=== PATIENT | male | born 1975 | race Caucasian/White ===

== ENCOUNTER 2020-07-27 18:45 | Emergency (ER) | payer OTHER, SELFPAY ==
[2020-07-27 18:46] VITALS: BP 158/103; PULSE 94; RESP 18; TEMP 35.9; O2SAT 94; BMI 44.2
[2020-07-27 19:17] VITALS: O2SAT 95
[2020-07-27] MEDS: Acetaminophen 500 MG Tablet 1000 MG PO (19:24)
[2020-07-27] MEDS: Ibuprofen 400 MG Tablet 800 MG PO (19:24)
--- NOTE | 2020-07-27 19:24 | RAD_ITS ---
STUDY: X-RAY CHEST REASON FOR EXAM: Male, 45 years old. COUGH, LOSS OF SMELL SINCE SUNDAY. TECHNIQUE: Single AP portable view of the chest. COMPARISON: None. FINDINGS: The lungs are clear and expanded. There is no demonstrated pleural abnormality. Normal size heart. Normal mediastinum and amalia. Normal visualized pulmonary arteries. Normal visualized aortic arch and descending thoracic aorta. Normal visualized thoracic spine. Normal visualized ribs, clavicles, and shoulders. There is no demonstrated abnormality of the visualized soft tissue structures of the upper abdomen. RAD/Chest 1 View (Portable) IMPRESSION: Normal x-ray examination of the chest. Electronically Signed: Primitivo Garcia MD at 19:59 EST , Service support ,
--- NOTE | 2020-07-27 20:18 | ED.VISSUMM ---
- ER Visit Summary Date of Service: 07/27/20 Chief Complaint: Cough History of Present Illness: The patient is a 45 M with no primary care physician reports that he has a cough began 2 days ago. It is nonproductive. Complains subjective fever and chills. He reports that he has mild shortness of breath that is increased with exertion. He has been wheezing. He is never had to use an inhaler in the past. He does not smoke. Patient complains of subjective fever and chills. His got nasal congestion and sore throat is 6 out of 10 in severity. Reports that he has chest pain that is brought on by coughing. States that it is also brought on by deep breaths. Is 5 out of 10 at worst and 3-10 currently. He has had 3 episodes of diarrhea today. He also complains of a frontal headache that is 8 out of 10 severity. Is increased with coughing. Complains of diffuse myalgias. Patient denies any sick contacts. He does wear a mask. He denies any loss of sensation of taste. Reports he can smell because his nose is stuffed up. Physical Examination: Vitals: Stable. Afebrile. General: Well-nourished and well-developed. Head: Normocephalic atraumatic. Neck: Supple, no lymphadenopathy. No JVD. Nontender. Cardiovascular: Regular rate and rhythm. No murmurs. Respiratory: No respiratory distress. Clear to auscultation bilaterally. Abdominal: Soft, nontender, nondistended, normal bowel sounds. No guarding, rebound, or peritoneal signs. Back: Nontender. Extremities: Nontender, no edema. Skin: Normal color, no rash. Neurologic: Alert and oriented ?3. Cranial nerves II through XII are intact. Normal strength and sensation. Psych: Normal affect. Test Results: COVID-19 rapid antigen is negative. Clinical Impression(s) from Imaging Studies Chest X-Ray 07/27/20 19:24 IMPRESSION: Normal x-ray examination of the chest. Electronically Signed: Primitivo Garcia MD at 19:59 EST , Service support , Emergency Department Course and Treatment: Patient refused an IV and labs. He was given Tylenol and ibuprofen. He is resting comfortably. Treatment Plan: Patient will be discharged prescription for an albuterol MDI and Tessalon Perles. He is instructed to quarantine until he is asymptomatic. Instructed to follow-up with [facility] in 10 to 14 days if not improving. Return to the emergency department for any worsening symptoms. Disposition: To home in improved and stable condition. Impression: 1. URI. This note was generated with [employer] dictation software. It may contain incorrect words, spelling, and punctuation that were not noted in review of the chart prior to signing ED Disposition - Plan for ED Patient: Instructions: ED Bronchitis, No Antibiotic (Adult) Prescriptions: Benzonatate [Tessalon Perle] 200 mg PO TID PRN PRN #20 capsule PRN Reason: Cough Albuterol Inhaler [Ventolin Hfa] 2 puff INHALATION Q4H PRN PRN #1 inhaler PRN Reason: Wheezing Referrals: [facility] [NON-STAFF] - 10-14 Days if not better
[2020-07-27 20:36] VITALS: BP 149/90; PULSE 97; RESP 16; O2SAT 97
== END 2020-07-27 20:37 | disposition home or self-care (01) ==
LOC: ED 19:54
PROVIDERS: Emergency Provider Emergency Medicine
DX: J06.9 Acute upper respiratory infection, unspecified (principal); Z20.822 Contact with and (suspected) exposure to COVID-19; R06.02 Shortness of breath; R07.9 Chest pain, unspecified; R19.7 Diarrhea, unspecified
CPT/HCPCS: 71045; 87426; 99282

== ENCOUNTER → 2021-04-04 | Outpatient (CLI) | payer OTHER, SELFPAY ==
[2021-04-04 10:16] LABS: International Normalized Ratio 1.6; Prothrombin Time (Protime)PT. 18.7 SECONDS (11.7-14.9)
== END | disposition home or self-care (01) ==
LOC: LABSPEC 09:52
PROVIDERS: Visit Provider Internal Medicine Hematology & Oncology
DX: I26.94 Multiple subsegmental thrombotic pulmonary emboli without acute cor pulmonale (principal); C15.5 Malignant neoplasm of lower third of esophagus; C79.31 Secondary malignant neoplasm of brain
CPT/HCPCS: 85610

== ENCOUNTER → 2021-04-06 | Outpatient (CLI) | payer OTHER, SELFPAY ==
[2021-04-06 10:36] LABS: International Normalized Ratio 2.2; Prothrombin Time (Protime)PT. 23.6 SECONDS (11.7-14.9)
== END | disposition home or self-care (01) ==
LOC: LABSPEC 10:23
PROVIDERS: PCP Registered Nurse; Visit Provider Internal Medicine Hematology & Oncology
DX: I26.99 Other pulmonary embolism without acute cor pulmonale (principal)
CPT/HCPCS: 85610

== ENCOUNTER → 2021-04-11 | Outpatient (CLI) | payer OTHER, SELFPAY ==
[2021-04-11 10:33] LABS: International Normalized Ratio 1.8; Prothrombin Time (Protime)PT. 20.4 SECONDS (11.7-14.9)
== END | disposition home or self-care (01) ==
LOC: LABSPEC 10:15
PROVIDERS: PCP Registered Nurse; Referring Provider Internal Medicine Hematology & Oncology; Visit Provider Internal Medicine Hematology & Oncology
DX: I26.94 Multiple subsegmental thrombotic pulmonary emboli without acute cor pulmonale (principal); C15.5 Malignant neoplasm of lower third of esophagus; C79.31 Secondary malignant neoplasm of brain
CPT/HCPCS: 85610

== ENCOUNTER → 2021-04-15 | Outpatient (CLI) | payer OTHER, SELFPAY ==
[2021-04-15 13:36] LABS: International Normalized Ratio 2.5; Prothrombin Time (Protime)PT. 26.6 SECONDS (11.7-14.9)
== END | disposition home or self-care (01) ==
LOC: LABSPEC 13:23
PROVIDERS: PCP Registered Nurse; Referring Provider Internal Medicine Hematology & Oncology; Visit Provider Internal Medicine Hematology & Oncology
DX: I26.94 Multiple subsegmental thrombotic pulmonary emboli without acute cor pulmonale (principal); C15.5 Malignant neoplasm of lower third of esophagus; C79.31 Secondary malignant neoplasm of brain
CPT/HCPCS: 85610

== ENCOUNTER → 2021-04-19 | Outpatient (CLI) | payer OTHER, SELFPAY ==
[2021-04-19 12:59] LABS: International Normalized Ratio 3.2; Prothrombin Time (Protime)PT. 31.7 SECONDS (11.7-14.9)
== END | disposition home or self-care (01) ==
PROVIDERS: PCP Registered Nurse; Referring Provider Nurse Practitioner; Visit Provider Nurse Practitioner
DX: I26.94 Multiple subsegmental thrombotic pulmonary emboli without acute cor pulmonale (principal); C15.5 Malignant neoplasm of lower third of esophagus; C79.31 Secondary malignant neoplasm of brain
CPT/HCPCS: 85610

== ENCOUNTER → 2021-04-26 | Outpatient (CLI) | payer OTHER, SELFPAY ==
[2021-04-26 11:06] LABS: Prothrombin Time (Protime)PT. 30.4 SECONDS (11.7-14.9)
== END | disposition home or self-care (01) ==
LOC: LABSPEC 10:23
PROVIDERS: PCP Registered Nurse; Visit Provider Internal Medicine Hematology & Oncology
DX: I26.94 Multiple subsegmental thrombotic pulmonary emboli without acute cor pulmonale (principal); C15.5 Malignant neoplasm of lower third of esophagus; C79.31 Secondary malignant neoplasm of brain
CPT/HCPCS: 85610

== ENCOUNTER 2021-07-26 11:59 | Emergency (ER) | payer OTHER, SELFPAY ==
[2021-07-26] VITALS (17 sets, daily range): BP systolic 101–122; BP diastolic 56–84; PULSE 85–113; RESP 15–24; TEMP 35.9–37.2; O2SAT 95–100; BMI 39.2
[2021-07-26 13:04] LABS: Absolute Lymphocyte Count 0.68 X10^3/uL (0.83-4.51); Absolute Neutrophil Count 3.1 X10^3/uL (2.0-7.7); Basophil# 0.04 X10^3/uL; Basophil% 0.9 % (0-1); Eosinophil# 0.09 X10^3/uL; Hematocrit 16.5 % (40-54); Lymphocyte # 0.68 X10^3/ul (0.83-4.51); Mean Corp Hgb Conc 32.1 g/dL (32-36); Mean Corpuscular Hgb 33.3 pg (27.0-32.0); Mean Corpuscular Volume 103.8 fL (80-94); Mean Platelet Vol. 10.2 fl (6.2-12.0); Monocyte# 0.66 X10^3/uL; Monocyte% 14.6 % (0-10); NRBC Flagged by Analyzer 0 % (0-5); Neutrophil # 3.05 X10^3/uL (2.7-7.7); Neutrophil % 67.3 % (47-70); POSITIVE COUNT YES; POSITIVE MORPHOLOGY YES; Platelet Count 137 K/mm3 (150-450); RBC Distribution Width CV 17.5 % (11.6-14.6); RBC Distribution Width SD 66.4 fl (35.1-43.9); Red Blood Count 1.59 M/mm3 (4.6-6.2); White Blood Count 4.5 K/mm3 (4.4-11.0)
[2021-07-26 13:06] LABS: Differential Indicated SCAN CRITERIA MET; Hemoglobin 5.3 g/dL (13.0-16.5)
[2021-07-26 13:17] LABS: Anion Gap 5 (5-15); BUN 25 mg/dL (7-18); BUN/Creat Ratio 23.8 RATIO (10-20); Calcium,Total 7.9 mg/dL (8.5-10.1); Chloride 112 mmol/L (98-107); Creatinine, Serum 1.05 mg/dL (0.70-1.30); EST Glomerular Filtration Rate 81 mL/min (>60); Est Glom Filt Rate - Afr Amer 98 mL/min (>60); Estimated Creatinine Clearance 94.62 ml/min; Glucose 97 mg/dL (74-106); Potassium 3.7 mmol/L (3.5-5.1); Prothrombin Time (Protime)PT. 53.3 SECONDS (11.7-14.9); Sodium Level 141 mmol/L (136-145)
[2021-07-26 13:24] LABS: International Normalized Ratio 6.1
[2021-07-26 13:34] LABS: Anisocytosis 1+; Hypochromasia 1+; Macrocytosis 2+
[2021-07-26] MEDS: Phytonadione (Vit K1) 5 MG TABLET PO (14:53)
--- NOTE | 2021-07-26 15:03 | EX.ED.DYSGE1 ---
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 Patient is currently receiving chemotherapy and immunotherapy. He had routine blood work anticipation of treatments this week and was found to have a hemoglobin of 5.6. He was 7.8 last week (07/12). In addition patient's INR is 7.6. Patient notes he is been having dark stools but attributes that to his iron tablets that he was placed on. He had 2 units of packed red blood cells ordered to receive tomorrow but his oncologist wanted him to be evaluated more urgently than the so he was sent to the emergency room. Patient has had weight loss and reports decreased oral intake but denies any significant dietary changes. She has been compliant with all his medications. He notes he has been having a little dizzy when he stands up and having exercise intolerance over the past week or so. No other complaints at this time. [facility] Medical History Throat cancer Home Medications ferrous sulfate 325 mg PO DAILY 07/26/21 [History Last Taken 07/25/21] lisinopril 10 mg PO DAILY 07/26/21 [History Last Taken 07/26/21] olanzapine 10 mg PO QHS 07/26/21 [History Last Taken 07/25/21] omeprazole 40 mg PO DAILY 07/26/21 [History Last Taken 07/26/21] warfarin 5 mg PO DAILY 07/26/21 [History Last Taken 07/26/21] Allergy/AdvReac Type Severity Reaction Status Date / Time Penicillins Allergy Mild Hives Verified 07/26/21 12:03 Social History Smoking Status: Never smoker ROS ROS ED Constitutional Constitutional ED: Reports weight loss; Denies chills or fever(s) Eyes Eyes: Denies change in vision ENT ENT ED: Denies rhinorrhea or sore throat Cardiovascular Cardiovascular: Denies chest pain or palpitations Respiratory/Chest Respiratory/Chest: Reports dyspnea on exertion; Denies cough or dyspnea Gastrointestinal Gastrointestinal: Denies abdominal pain, melena, nausea or vomiting Musculoskeletal Musculoskeletal: Denies arthralgias or myalgias Integumentary Denies rash Neurologic Neurologic: Reports weakness; Denies headache(s) Psychiatric Psychiatric: Denies depression EXAM Physical Exam Const Vital Signs: 07/26/21 12:00 07/26/21 12:15 07/26/21 12:40 Temperature 96.6 F L Temperature Source Temporal Pulse Rate 113 H 102 H Respiratory Rate 18 23 H Respiratory Effort Normal Respiratory Pattern Normal Blood Pressure 111/64 116/84 H Blood Pressure Mean 79 94 Pulse Ox 97 97 Oxygen Delivery Method Room Air Room Air 07/26/21 14:04 Temperature Temperature Source Pulse Rate 90 Respiratory Rate 18 Respiratory Effort Respiratory Pattern Blood Pressure 115/56 L Blood Pressure Mean 75 Pulse Ox 97 Oxygen Delivery Method Room Air Positive well nourished and well developed General Appearance ED: well developed and pallor HEENT Reports moist mucous membranes Negative for tenderness Eyes PERRL and EOMs intact bilaterally Neck no lymphadenopathy, supple and no JVD Chest Wall inspection of chest normal Resp normal respiratory effort and clear to auscultation bilaterally Cardio regular rate, regular rhythm and no murmurs GI normal to inspection, nondistended, normoactive bowel sounds and non-tender Palpation: soft Rectal Exam: heme negative stool Back/Spine no CVA tenderness Extremity normal to inspection General Extremety ED: Negative for edema or tenderness General Extremity: Negative for edema Neuro oriented x3 Sensorium / Orientation: alert Motor Exam: Negative for general weakness Psych mental status grossly normal Skin no rashes or lesions noted and no wounds General Skin Exam: pallor MDM MDM MDM Narrative Medical decision making narrative: Patient evaluated for supratherapeutic INR. Case is discussed with his treating oncologist, Dr. Egan. Rechecked a CBC which confirmed his anemia with a hemoglobin of 5.3. Rectal exam does not show any signs of GI bleed or occult GI bleed. No signs of active bleeding. Patient is given a dose of 5 mg oral vitamin K per the recommendation of his oncologist. Patient be given 2 units of packed red blood cells and is symptomatic. Patient would like to go home after transfusion. Assuming he is feeling better and asymptomatic after blood transfusion he can be discharged home to follow-up outpatient with his oncologist. Is instructed to hold his Coumadin today. Lab Data Attestation: I reviewed the patient's lab results. Labs: Laboratory Results - last 24 hr 07/26/21 07/26/21 07/26/21 12:53 12:53 12:53 WBC 4.5 RBC 1.59 L Hgb 5.3 L* Hct 16.5 L MCV 103.8 H MCH 33.3 H MCHC 32.1 RDW Std Deviation 66.4 H RDW Coeff of Kami 17.5 H Plt Count 137 L MPV 10.2 Immature Gran % (Auto) 0.200 Neut % (Auto) 67.3 Lymph % (Auto) 15.0 L [place] % (Auto) 14.6 H Eos % (Auto) 2.0 Baso % (Auto) 0.9 Absolute Neuts (auto) 3.1 Absolute Lymphs (auto) 0.68 L Nucleated RBC % 0 Diff Path Review May foll Hypochromasia 1+ Anisocytosis 1+ Macrocytosis 2+ PT 53.3 H INR 6.1 H* Sodium 141 Potassium 3.7 Chloride 112 H Carbon Dioxide 24.0 Anion Gap 5 BUN 25 H Creatinine 1.05 Estim Creat Clear Calc 94.62 Est GFR (MDRD) Af Amer 98 Est GFR (MDRD) Non-Af 81 BUN/Creatinine Ratio 23.8 H Glucose 97 Calcium 7.9 L Blood Type Antibody Screen Crossmatch 07/26/21 13:16 WBC RBC Hgb Hct MCV MCH MCHC RDW Std Deviation RDW Coeff of Kami Plt Count MPV Immature Gran % (Auto) Neut % (Auto) Lymph % (Auto) [place] % (Auto) Eos % (Auto) Baso % (Auto) Absolute Neuts (auto) Absolute Lymphs (auto) Nucleated RBC % Diff Path Review Hypochromasia Anisocytosis Macrocytosis PT INR Sodium Potassium Chloride Carbon Dioxide Anion Gap BUN Creatinine Estim Creat Clear Calc Est GFR (MDRD) Af Amer Est GFR (MDRD) Non-Af BUN/Creatinine Ratio Glucose Calcium Blood Type A POSITIVE Antibody Screen NEGATIVE Crossmatch See Detail Discharge Plan Triage Chief Complaint: Dizziness ED Provider: Shobha Rivas Dx/Rx/DC Orders Clinical Impression: Symptomatic anemia, Supratherapeutic INR Instructions: Anemia Prescriptions: No Action olanzapine 10 mg tablet 10 mg PO QHS RF: 0 ferrous sulfate 325 mg (65 mg iron) Tablet 325 mg PO DAILY RF: 0 lisinopril 10 mg tablet 10 mg PO DAILY RF: 0 warfarin 5 mg Tablet 5 mg PO DAILY RF: 0 omeprazole 20 mg capsule,delayed release(DR/EC) 40 mg PO DAILY RF: 0 Primary Care Provider: Cassy Aranda NP Referrals: Ignacio Egan DO [STAFF PHYSICIAN] - Cassy Aranda NP, [employer] [Primary Care Provider] - Activity Restrictions/Additional Instructions: Hold your Coumadin today and tomorrow. Discussed with your oncologist further recommendations for your Coumadin dosing. Call him tomorrow. Disposition Disposition: Home, Self Care
[2021-07-27 10:28] LABS: Pathologist Review Reviewed
== END 2021-07-26 19:39 | disposition home or self-care (01) ==
PROVIDERS: Emergency Provider Emergency Medicine; PCP Registered Nurse; Visit Provider Emergency Medicine
DX: D64.9 Anemia, unspecified (principal); C79.31 Secondary malignant neoplasm of brain; C15.9 Malignant neoplasm of esophagus, unspecified; C77.9 Secondary and unspecified malignant neoplasm of lymph node, unspecified; R79.1 Abnormal coagulation profile; Z79.01 Long term (current) use of anticoagulants; Z79.899 Other long term (current) drug therapy
CPT/HCPCS: 36430; 80048; 82274; 85025; 85610; 86850; 86900; 86901; 86920; 86922; 99282; J7050; P9016; A4216

== ENCOUNTER 2021-07-27 15:22 | Outpatient (CLI) | payer OTHER, SELFPAY ==
[2021-07-27 15:56] LABS: Prothrombin Time (Protime)PT. 49.1 SECONDS (11.7-14.9)
[2021-07-27 16:05] LABS: International Normalized Ratio 5.5
== END 2021-07-27 23:59 | disposition short-term general hospital (02) ==
LOC: LABSPEC 15:27
PROVIDERS: PCP Registered Nurse; Visit Provider Internal Medicine Hematology & Oncology
DX: I26.94 Multiple subsegmental thrombotic pulmonary emboli without acute cor pulmonale (principal); C79.31 Secondary malignant neoplasm of brain; C15.5 Malignant neoplasm of lower third of esophagus
CPT/HCPCS: 85610

== ENCOUNTER 2021-07-29 12:32 | Outpatient (CLI) | payer OTHER, SELFPAY ==
[2021-07-29 12:52] LABS: International Normalized Ratio 1.5; Prothrombin Time (Protime)PT. 17.5 SECONDS (11.7-14.9)
== END 2021-07-29 23:59 | disposition home or self-care (01) ==
PROVIDERS: PCP Registered Nurse; Visit Provider Internal Medicine Hematology & Oncology
DX: I26.99 Other pulmonary embolism without acute cor pulmonale (principal)
CPT/HCPCS: 85610

== ENCOUNTER 2021-08-05 09:06 | Outpatient (CLI) | payer OTHER, SELFPAY ==
[2021-08-05 09:20] VITALS: BP 135/75; PULSE 87; RESP 12; TEMP 36.6; O2SAT 94; BMI 40.4
[2021-08-05] MEDS: 0.9% NaCl VAD Flush IV ×2 (09:28→12:00)
[2021-08-05 10:16] VITALS: BP 110/65; PULSE 78; RESP 16; TEMP 36.6; O2SAT 95
[2021-08-05 11:16] VITALS: BP 117/71; PULSE 79; RESP 16; TEMP 37.1
[2021-08-05 11:56] VITALS: BP 117/71; PULSE 78; RESP 16; TEMP 37.1
== END 2021-08-05 23:59 | disposition home or self-care (01) ==
LOC: MEDOUTP 09:08
PROVIDERS: PCP Registered Nurse; Referring Provider Internal Medicine Hematology & Oncology; Visit Provider Internal Medicine Hematology & Oncology
DX: Z51.89 Encounter for other specified aftercare (principal); D64.81 Anemia due to antineoplastic chemotherapy
CPT/HCPCS: 36430; 86850; 86900; 86901; 86920; 86922; J7040; P9016; A4216

== ENCOUNTER 2021-08-05 12:10 | Outpatient (CLI) | payer OTHER, SELFPAY ==
--- NOTE | 2021-08-05 12:13 | VDLE_ITS ---
Reason For Study: Swelling, Pulmonary embolism without infarction RIGHT LEFT GSV is normal. GSV is normal. CFV is compressible, spontaneous, phasic, CFV is compressible, spontaneous, phasic, competent and demonstrates normal competent, and demonstrates normal augmentation. augmentation. FV is compressible, spontaneous, phasic, FV is compressible, spontaneous, phasic, competent and demonstrates normal competent and demonstrates normal augmentation. augmentation. POP V is compressible, spontaneous, phasic, POP V is compressible, spontaneous, phasic, competent and demonstrates normal competent and demonstrates normal augmentation. augmentation. T/P Trunk is compressible. T/P Trunk is compressible. PTV is compressible. PTV is compressible. RT PerV is compressible. LT PerV is compressible. Procedure This is a venous duplex using B-mode, color flow and spectral Doppler. Exam performed in department. A preliminary report was called and/or faxed to [facility]. VL/Venous Duplex US - Irineo Extrem Interpretation Summary No evidence for acute deep venous thrombosis bilateral lower extremities with p atent and compressible bilateral great saphenous veins. Ordering Physician: Ignacio Egan Referring Physician: Cassy Aranda Performed By: La Zambrano RVT
== END 2021-08-05 23:59 | disposition home or self-care (01) ==
LOC: CVS 12:11
PROVIDERS: PCP Registered Nurse; Referring Provider Internal Medicine Hematology & Oncology; Visit Provider Internal Medicine Hematology & Oncology
DX: M79.89 Other specified soft tissue disorders (principal); I26.99 Other pulmonary embolism without acute cor pulmonale
CPT/HCPCS: 93970

== ENCOUNTER 2021-08-30 11:58 | Outpatient (CLI) | payer OTHER, SELFPAY ==
[2021-08-30 12:29] LABS: International Normalized Ratio 1.1; Prothrombin Time (Protime)PT. 13.4 SECONDS (11.7-14.9)
== END 2021-08-30 23:59 | disposition home or self-care (01) ==
LOC: LABSPEC 11:59
PROVIDERS: PCP Registered Nurse; Visit Provider Internal Medicine Hematology & Oncology
DX: I26.99 Other pulmonary embolism without acute cor pulmonale (principal)
CPT/HCPCS: 85610

== ENCOUNTER 2022-06-08 16:20 | Emergency (ER) | payer OTHER, SELFPAY ==
[2022-06-08 16:21] VITALS: BP 134/100; PULSE 107; RESP 16; TEMP 36.3; O2SAT 99; BMI 37.8
--- NOTE | 2022-06-08 16:59 | EDS_ITS ---
HPI History of Present Illness Chief Complaint: Hyperglycemia Informant: patient and spouse/S.O. Onset/Context/Timing Onset: Days Context: Gradual Onset Timing: Continuous Current Severity: Mild Maximum Severity: Mild Narrative Narrative: 47-year-old male known history of esophageal CA with brain mets. Has been diagn osed 1.5 years. He has had gamma knife procedures for the brain metastases. He has significant vertigo and ataxia from the brain mets. Today he was seen in [place] office Dr. Ignacio Egan. His blood sugar was elevated at 369 and he thought he was dehydrated and sent him to the ER to be evaluated and hydrated. He has had intermittent nausea and vomiting. Prior similar symptoms: Yes Recent Illness/Hospitalization: No [facility] Medical History Throat cancer Home Medications ferrous sulfate 325 mg (65 mg iron) tablet 325 mg PO DAILY iron supplement 07/26/21 [History Last Taken 07/25/21] lisinopril 10 mg tablet 10 mg PO DAILY blood pressure 07/26/21 [History Last Taken 07/26/21] olanzapine 10 mg tablet 10 mg PO QHS 07/26/21 [History Last Taken 07/25/21] omeprazole 20 mg capsule,delayed release 40 mg PO DAILY acid reflux 07/26/21 [History Last Taken 07/26/21] warfarin 5 mg tablet 5 mg PO DAILY blood thinner 07/26/21 [History Last Taken 07/26/21] Allergy/AdvReac Type Severity Reaction Status Date / Time Penicillins Allergy Mild Hives Verified 07/26/21 12:03 Social History Smoking Status: Never smoker ROS ROS ED ROS Narrative Nausea and vomiting. Review of Systems ROS Unobtainable: Denies due to encephalopathy Constitutional Constitutional ED: Denies chills or fever(s) Eyes Eyes: Denies blurry vision ENT ENT ED: Denies ear pain Cardiovascular Cardiovascular: Denies chest pain Respiratory/Chest Respiratory/Chest: Denies cough or dyspnea Gastrointestinal Gastrointestinal: Reports nausea and vomiting; Denies abdominal pain, constipation or melena Genitourinary Genitourinary ED: Denies dysuria or hematuria Musculoskeletal Musculoskeletal: Denies arthralgias Integumentary Denies abscess Neurologic Neurologic: Denies headache(s) Psychiatric Psychiatric: Denies anxiety Endocrine Endocrinology: Denies cold intolerance Hematologic/Lymphatic Hematologic/Lymphatic: Reports none Allergic/Immunologic Allergic/Immunologic ED: Denies mouth swelling or tongue swelling EXAM Physical Exam Narrative Exam Narrative: -year-old male vital signs are stable afebrile. He does not look septic or toxic. H EENT exam alopecia with mildly dry mucous members. Neck nontender. Lungs clear to auscultation. Heart tachycardic rate about 110 no murmur. Abdomen soft nontender normal bowel sounds no peritoneal signs. Moving all 4 extremities. Skin pale. Neurologically is awake and alert. Answering questions following commands. Const Vital Signs: 06/08/22 16:21 06/08/22 16:44 06/08/22 19:31 Temperature 97.3 F L Temperature Source Temporal Pulse Rate 107 H Respiratory Rate 16 Respiratory Effort Normal Blood Pressure 134/100 H Blood Pressure Mean 111 Pulse Ox 99 99 Oxygen Delivery Method Room Air Room Air Positive well nourished, well developed and obese; Negative for cachectic, contractures or unkempt General Appearance ED: well developed and pallor; Negative for unkempt, cachectic or contractures Nutritional Appearance: obese; Negative for cachectic HEENT Reports dry mucous membranes Negative for trauma or tenderness Mouth ED: Yes dry mucous membranes Mouth: dry mucous membranes Eyes PERRL and EOMs intact bilaterally General Eye ED: Negative for pale conjunctiva, scleral icterus or other Neck supple and no JVD General: Negative for tenderness Lymph Lymphatic: Negative for other Chest Wall inspection of chest normal and palpation of chest normal Chest: Negative for other Resp normal respiratory effort and clear to auscultation bilaterally Effort and Inspection: Negative for retractions Auscultation: Negative for rales, rhonchi or wheezes Cardio regular rhythm, S2 normal heart sound and no murmurs; Negative for regular rate Rate: tachycardic GI normal to inspection, nondistended, normoactive bowel sounds, non-tender, non- distended and no masses Inspection: Negative for abdominal distention Auscultation: normoactive bowel sounds Palpation: soft; Negative for tender Back/Spine no CVA tenderness General Back: Negative for CVA tenderness Cervical Spine: Negative for cervical spine tenderness Thoracic Spine / Upper Back: Negative for thoracic spinal tenderness Lumbar Spine / Lower Back: Negative for lumbar spinal tenderness Extremity normal to inspection General Extremety ED: Negative for edema or tenderness General Extremity: Negative for edema Neuro oriented x3 Sensorium / Orientation: alert Motor Exam: strength 5/5 throughout Psych mental status grossly normal Appearance: Negative for unkempt Attitude: No agitated Mood & Affect: Negative for depressed, anxious or tearful Skin no rashes or lesions noted and no wounds General Skin Exam: pallor; Negative for jaundice Rashes: No rashes noted Trauma: Negative for abrasion Wounds: Negative for wounds noted MDM MDM MDM Narrative Medical decision making narrative: 47-year-old male history of esophageal CA with brain mets. Undergoing chemotherapy and gamma knife surgeries. Today his blood sugar is elevated at the oncologist office he was sent in for dehydration. He will be treated with IV fluids. Screening labs are being obtained.Urinalysis is negative. Multiple repeat exams unchanged. He was treated with a liter of normal saline. Patient clinically is mildly dehydrated. I spoke at length to his oncologist Dr. Ignacio Egan. Patient has a very very poor prognosis. He has been on dexamethasone which may be driving his blood sugars up he also may be converting to new onset diabetes or could also be from liver failure from his cancer with metastases. Dr. Egan is going to have him follow-up with [facility] primary care tomorrow to get him started on medications for his blood sugar. Neither he nor I feel the patient needs to be admitted. Discussed this at length with both the patient and his significant other. We will follow-up tomorrow. He will receive another saline bolus of 500 and recheck his blood sugar prior to discharge. Lab Data Attestation: I reviewed the patient's lab results. Lab results narrative: * CBC White count 7.8 H&H 8.9 and 25. Platelets 111,000. Electrolytes potassium of 3.3 gap at 9 BUN 35 creatinine 1.1 consistent with dehydration. Liver enzymes are elevated. Glucose 373. Gap at 9. * Urinalysis is negative. Labs: Laboratory Results - last 24 hr 06/08/22 06/08/22 06/08/22 17:05 17:05 18:54 WBC 7.8 RBC 2.84 L Hgb 8.9 L Hct 25.5 L MCV 89.8 MCH 31.3 MCHC 34.9 RDW Std Deviation 77.6 H RDW Coeff of Kami 23.8 H Plt Count 111 L MPV 10.7 Neut % (Auto) Not Reportable Absolute Neuts (auto) 7.2 Absolute Lymphs (auto) 0.16 L Total Counted 100 Neutrophils % (Manual) 77 H Band Neutrophils % 15 H Lymphocytes % (Manual) 2 L Metamyelocytes % 2 H Myelocytes % 4 H Nucleated RBCs/100 WBC 1 Differential Comment SEE COMMENT Diff Path Review May foll Platelet Estimate SLT DEC RBC Morphology N CHROM Anisocytosis 1+ Microcytosis 1+ Sodium 138 Potassium 3.3 L Chloride 102 Carbon Dioxide 27.0 Anion Gap 9 BUN 35 H Creatinine 1.16 Estim Creat Clear Calc 84.75 Est GFR (MDRD) Af Amer 87 Est GFR (MDRD) Non-Af 72 BUN/Creatinine Ratio 30.2 H Glucose 373 H Calcium 7.6 L Total Bilirubin 2.30 H AST 60 H ALT 96 H Alkaline Phosphatase 298 H Total Protein 4.7 L Albumin 1.8 L Globulin 2.9 Albumin/Globulin Ratio 0.6 L Urine Color Urine Clarity Urine pH Ur Specific [place] Urine Protein Urine Glucose (UA) Urine Ketones Urine Occult Blood Urine Nitrite Urine Bilirubin Urine Urobilinogen Ur Leukocyte Esterase Urine RBC Urine WBC Ur Squamous Epith Cells Urine Bacteria Urine Mucus POC Glucose 357 H 06/08/22 06/08/22 20:40 20:50 WBC RBC Hgb Hct MCV MCH MCHC RDW Std Deviation RDW Coeff of Kami Plt Count MPV Neut % (Auto) Absolute Neuts (auto) Absolute Lymphs (auto) Total Counted Neutrophils % (Manual) Band Neutrophils % Lymphocytes % (Manual) Metamyelocytes % Myelocytes % Nucleated RBCs/100 WBC Differential Comment Diff Path Review Platelet Estimate RBC Morphology Anisocytosis Microcytosis Sodium Potassium Chloride Carbon Dioxide Anion Gap BUN Creatinine Estim Creat Clear Calc Est GFR (MDRD) Af Amer Est GFR (MDRD) Non-Af BUN/Creatinine Ratio Glucose Calcium Total Bilirubin AST ALT Alkaline Phosphatase Total Protein Albumin Globulin Albumin/Globulin Ratio Urine Color Nae Urine Clarity Clear Urine pH 6.0 Ur Specific [place] 1.015 Urine Protein 15 H Urine Glucose (UA) Normal Urine Ketones 5 H Urine Occult Blood Negative Urine Nitrite Negative Urine Bilirubin Negative Urine Urobilinogen 4 H Ur Leukocyte Esterase 25 H Urine RBC 0 SEEN Urine WBC 0-5 SEEN Ur Squamous Epith Cells 0 SEEN Urine Bacteria RARE Urine Mucus 0 SEEN POC Glucose 361 H Discharge Plan Triage Chief Complaint: Hyperglycemia ED Provider: Obi Ely Dx/Rx/DC Orders Clinical Impression: Hyperglycemia, Diabetes mellitus, new onset, Hx of esophageal malignancy, Abnormal liver enzymes, Acute dehydration Prescriptions: No Action olanzapine 10 mg tablet 10 mg PO QHS Label Comments: TAKE 1 TABLET BY MOUTH EVERYDAY AT BEDTIME ferrous sulfate 325 mg (65 mg iron) Tablet 325 mg PO DAILY lisinopril 10 mg tablet 10 mg PO DAILY Label Comments: TAKE 1 TABLET BY MOUTH EVERY DAY warfarin 5 mg Tablet 5 mg PO DAILY omeprazole 20 mg capsule,delayed release(DR/EC) 40 mg PO DAILY Label Comments: TAKE 2 CAPSULES BY MOUTH EVERY DAY Primary Care Provider: Cassy Aranda NP Referrals: Cassy Aranda NP, [employer] [Primary Care Provider] -
[2022-06-08 17:15] LABS: Hematocrit 25.5 % (40-54); Hemoglobin 8.9 g/dL (13.0-16.5); Mean Corp Hgb Conc 34.9 g/dL (32-36); Mean Corpuscular Hgb 31.3 pg (27.0-32.0); Mean Corpuscular Volume 89.8 fL (80-94); Mean Platelet Vol. 10.7 fl (6.2-12.0); POSITIVE COUNT YES; POSITIVE DIFFERENTIAL YES; POSITIVE MORPHOLOGY YES; Platelet Count 111 K/mm3 (150-450); RBC Distribution Width CV 23.8 % (11.6-14.6); RBC Distribution Width SD 77.6 fl (35.1-43.9); Red Blood Count 2.84 M/mm3 (4.6-6.2); White Blood Count 7.8 K/mm3 (4.4-11.0)
[2022-06-08 17:17] LABS: Differential Indicated MANUAL DIFF
[2022-06-08] MEDS: 0.9% Normal Saline 1,000 ML 1000 ML IV (17:20)
[2022-06-08 17:42] LABS: ALB/GLOB Ratio 0.6 RATIO (0.9-2.4); AST(SGOT) 60 U/L (15-37); Alanine Aminotransfer ALT/SGPT 96 U/L (16-61); Albumin, Serum 1.8 g/dL (3.2-5.0); Alkaline Phosphatase 298 U/L (45-117); Anion Gap 9 (5-15); BUN 35 mg/dL (7-18); BUN/Creat Ratio 30.2 RATIO (10-20); Calcium,Total 7.6 mg/dL (8.5-10.1); Chloride 102 mmol/L (98-107); Creatinine, Serum 1.16 mg/dL (0.70-1.30); EST Glomerular Filtration Rate 72 mL/min (>60); Est Glom Filt Rate - Afr Amer 87 mL/min (>60); Estimated Creatinine Clearance 84.75 ml/min; Globulin 2.9 g/dL (2.2-4.2); Glucose 373 mg/dL (74-106); Potassium 3.3 mmol/L (3.5-5.1); Protein, Total 4.7 g/dL (6.4-8.2); Sodium Level 138 mmol/L (136-145)
[2022-06-08 17:46] LABS: Lymphocyte 2 % (19-41); Metamyelocyte 2 % (0-1); Myelocyte 4 % (0-0); Neutrophil-Band 15 % (0-5); Neutrophil-Segmented 77 % (47-70); Nucleated Red Bld Cells,Manual 1 % (0-5); Total Cells Counted 100 (MANUAL DIFF)
[2022-06-08 17:49] LABS: Absolute Lymphocyte Count 0.16 X10^3/uL (0.83-4.51); Absolute Neutrophil Count 7.2 X10^3/uL (2.0-7.7)
[2022-06-08 17:50] LABS: Platelet Estimate SLT DEC (ADEQ)
[2022-06-08 17:51] LABS: Anisocytosis 1+; Microcytosis 1+; Red Cell Morphology N CHROM NORMAL (NORM C&C)
[2022-06-08 19:16] LABS: Bedside Glucose 357 mg/dL (74-106)
[2022-06-08 19:31] VITALS: O2SAT 99
[2022-06-08] MEDS: Insulin Lispro 100 UNIT/ML INSULN.PEN 6 UNIT SC (20:54)
[2022-06-08 21:01] LABS: Bedside Glucose 361 mg/dL (74-106)
[2022-06-08 21:03] LABS: Mucous, Urine 0 SEEN /hpf (<or=2+); Red Blood Cells-Urine 0 SEEN /hpf (0-5); Squamous Epithelial Cells - UA 0 SEEN /hpf (0-5)
[2022-06-08 21:10] LABS: Color, Urine Amber (Yellow); Glucose, Dipstick Normal (Normal); Ketone-Dipstick 5 mg/dl (Negative); Leukocyte Esterase-Dipstick 25 /ul (Negative); Nitrite-Dipstick Negative (Negative); Occult Blood-Urine Negative /ul (Negative); Protein-Dipstick 15 mg/dl (Negative); Specific Gravity, Urine 1.015 (1.002-1.030); Urine Bilirubin Dipstick Negative (Negative); Urine Clarity Clear (Clear); Urine Urobilinogen 4 mg/dl (Normal)
[2022-06-08 21:16] LABS: Bacteria RARE /hpf (None Seen); White Blood Cells 0-5 SEEN /hpf (0-5)
[2022-06-08 22:09] VITALS: PULSE 78; RESP 22; O2SAT 93
[2022-06-08 22:25] LABS: Bedside Glucose 338 mg/dL (74-106)
[2022-06-12 10:07] LABS: Pathologist Review Reviewed
== END 2022-06-08 22:54 | disposition home or self-care (01) ==
PROVIDERS: Emergency Provider Emergency Medicine; PCP Registered Nurse; Visit Provider Emergency Medicine
DX: E11.65 Type 2 diabetes mellitus with hyperglycemia (principal); C79.31 Secondary malignant neoplasm of brain; E86.0 Dehydration; R74.8 Abnormal levels of other serum enzymes; E66.9 Obesity, unspecified
CPT/HCPCS: 36591; 80053; 81001; 82962; 85025; 96360; 96361; 99284; J7030; J7040; A4216

== ENCOUNTER 2022-06-12 07:38 | Inpatient (IN) | payer OTHER, MEDICAID, SELFPAY ==
[2022-06-12] VITALS (24 sets, daily range): BP systolic 105–130; BP diastolic 68–84; PULSE 83–101; RESP 10–32; TEMP 36–36.7; O2SAT 90–97; BMI 40.4; BMI 43.5
--- NOTE | 2022-06-12 07:56 | EDS_ITS ---
HPI History of Present Illness Chief Complaint: Hyperglycemia Informant: patient and EMS Onset/Context/Timing Context: Gradual Onset Timing: Continuous Quality: Weakness Location: Generalized Worsened by: Nothing Relieved by: Nothing Narrative Narrative: Patient presents with elevated blood sugars that were noticed today. Patient has a history of esophageal cancer with metastases. Patient is a poor informant. EMS reports the patient's fingerstick blood sugar read high. Patient denies any fevers or chills. Patient denies any nausea or vomiting. Patient denies any chest pain or shortness of breath. Review of prior records shows that the patient has been having problems with his blood sugar recently and his oncologist was not sure if it was related to his cancer or he is developing new onset diabetes. [facility] Medical History Throat cancer Home Medications ferrous sulfate 325 mg (65 mg iron) tablet 325 mg PO DAILY iron supplement 07/26/21 [History Last Taken 07/25/21] omeprazole 20 mg capsule,delayed release 40 mg PO DAILY acid reflux 07/26/21 [History Last Taken 07/26/21] acetaminophen 500 mg tablet 500 mg PO Q8H PRN Pain 06/12/22 [History Last Taken Unknown] bumetanide 1 mg tablet 1 mg PO DAILY FLUID 06/12/22 [History Last Taken Unknown] dexamethasone 4 mg tablet 4 mg PO TIDCM STEROID 06/12/22 [History Last Taken Unknown] enoxaparin 40 mg/0.4 mL subcutaneous syringe 40 mg subcut DAILY BLOOD CLOT 06/12/22 [History Last Taken Unknown] levothyroxine 50 mcg tablet 50 mcg PO DAILY THYROID 06/12/22 [History Last Taken Unknown] metformin 500 mg tablet 500 mg PO DAILY 06/12/22 [History Last Taken Unknown] pantoprazole 40 mg tablet,delayed release 40 mg PO DAILY GERD 06/12/22 [History Last Taken Unknown] potassium chloride 20 mEq tablet,extended release(part/cryst) (Klor-Con M) 20 meq PO DAILY SUPPLEMENT 06/12/22 [History Last Taken Unknown] trazodone 50 mg tablet 25 mg PO DAILY INSOMNIA 06/12/22 [History Last Taken Unknown] Allergy/AdvReac Type Severity Reaction Status Date / Time Penicillins Allergy Mild Hives Verified 07/26/21 12:03 Family History (Updated 06/12/22 @ 14:[address] Dilcia Mclaughlin MD) Father No problems noted. Social History Smoking Status: Never smoker ROS ROS ED Review of Systems ROS Unobtainable: due to mental condition Constitutional Constitutional ED: Denies chills or fever(s) Cardiovascular Cardiovascular: Denies chest pain Respiratory/Chest Respiratory/Chest: Denies cough or dyspnea Neurologic Neurologic: Denies headache(s) EXAM Physical Exam Const Vital Signs: 06/12/22 07:38 06/12/22 07:43 06/12/22 07:46 Temperature 96.8 F L 96.8 F L Temperature Source Temporal Temporal Pulse Rate 89 89 Respiratory Rate 25 H 25 H Respiratory Effort Normal Non-Labored Respiratory Pattern Tachypnea Blood Pressure 110/70 110/70 Blood Pressure Mean 83 83 Pulse Ox 95 95 Oxygen Delivery Method Room Air Room Air 06/12/22 08:13 06/12/22 09:07 06/12/22 10:22 Temperature 97 F L 96.8 F L Temperature Source Temporal Temporal Pulse Rate 87 95 92 Respiratory Rate 16 29 H 25 H Respiratory Effort Respiratory Pattern Blood Pressure 105/68 117/74 118/77 Blood Pressure Mean 80 88 90 Pulse Ox 93 92 92 Oxygen Delivery Method Room Air Room Air Room Air 06/12/22 11:31 Temperature 97 F L Temperature Source Temporal Pulse Rate 89 Respiratory Rate 23 H Respiratory Effort Respiratory Pattern Blood Pressure 120/78 Blood Pressure Mean 92 Pulse Ox 93 Oxygen Delivery Method Room Air Positive well nourished, well developed and obese General Appearance ED: well developed and NAD Nutritional Appearance: obese HEENT Reports dry mucous membranes Mouth ED: Yes dry mucous membranes Mouth: dry mucous membranes Chest Wall inspection of chest normal Resp normal respiratory effort Auscultation: diminished lung sounds diffuse Cardio regular rate and regular rhythm GI normal to inspection, nondistended, normoactive bowel sounds and non-tender Palpation: soft Neuro CN's II-XII intact bilaterally and no sensory deficits noted Sensorium / Orientation: alert Motor Exam: general weakness MDM MDM MDM Narrative Medical decision making narrative: Patient was given IV fluids. CBC shows leukocytosis of 13.1. Hemoglobin was 8.8 and hematocrit 25.9. Platelets were 94. Pro time was 17.8 with an INR of 1.5. PTT was 27.8. Creatinine is 1.77. This is increased from previous results. BUN was 51. Sodium was 131 and chloride was 96. Anion gap was normal at 14. Glucose was 622. Serum acetone was negative. Lactate was elevated at 6.4. Urinalysis shows a leukocyte esterases of 100 with positive nitrites. There is 2+ bacteria. There are 0-5 white blood cells noted. Portable chest x- ray was obtained. There is 1 view. On my interpretation, there is an elevated right hemidiaphragm and atelectasis at the right lung base. There is no evidence of pneumonia. Radiologist also interpreted the x-ray and agrees. Venous blood gas was obtained and was within normal limits. Blood cultures were ordered. Urine culture was ordered. Patient was ordered 30 cc/kg bolus of normal saline. Patient was given a dose of Humalog here. Patient was started on Levaquin. Case was discussed with the hospitalist. She will admit the patient to ICU. She requested insulin drip be started. This was ordered. Family was concerned about insurance coverage. Family was advised that patient would not likely be able to be transferred due to bed availability. Family contacted her insurance company. She stated that a provider needed to call in and obtain authorization for payment. I called the insurance company and was on her for 10 minutes. A callback was requested. I am currently awaiting an official call back from the insurance company to authorize payment. I talked to the patient's who stated that when she talked to the insurance company she was told it would most likely be covered. She is agreeable to having the patie nt admitted here. Hospitalist will be in and admit the patient to ICU. All questions were answered. Lab Data Attestation: I reviewed the patient's lab results. Labs: Laboratory Results - last 24 hr 06/12/22 06/12/22 06/12/22 08:05 08:05 08:05 WBC 13.1 H RBC 2.82 L Hgb 8.8 L Hct 25.9 L MCV 91.8 MCH 31.2 MCHC 34.0 RDW Std Deviation 79.2 H RDW Coeff of Kami 25.0 H Plt Count 94 L MPV 10.4 Immature Gran % (Auto) 1.700 H Neut % (Auto) 91.2 H Lymph % (Auto) 1.6 L Morgan % (Auto) 5.3 Eos % (Auto) 0.0 Baso % (Auto) 0.2 Absolute Neuts (auto) 11.9 H Absolute Lymphs (auto) 0.21 L Nucleated RBC % 3.0 Differential Comment COMMENT Platelet Estimate MOD DEC Anisocytosis 1+ PT 17.8 H INR 1.5 APTT 27.8 Sodium 131 L Potassium 4.4 Chloride 96 L Carbon Dioxide 21.0 Anion Gap 14 BUN 51 H Creatinine 1.77 H Estim Creat Clear Calc 55.54 Est GFR (MDRD) Af Amer 53 L Est GFR (MDRD) Non-Af 44 L BUN/Creatinine Ratio 28.8 H Glucose 622 H* Lactic Acid Calcium 7.9 L Phosphorus Magnesium Total Bilirubin 5.10 H AST 83 H ALT 135 H Alkaline Phosphatase 428 H Total Protein 4.8 L Albumin 1.7 L Globulin 3.1 Albumin/Globulin Ratio 0.5 L Urine Color Urine Clarity Urine pH Ur Specific Samaria Urine Protein Urine Glucose (UA) Urine Ketones Urine Occult Blood Urine Nitrite Urine Bilirubin Urine Urobilinogen Ur Leukocyte Esterase Urine RBC Urine WBC Ur Squamous Epith Cells Urine Bacteria Hyaline Casts Urine Mucus Acetone Level POC Glucose 06/12/22 06/12/22 06/12/22 08:05 08:05 08:05 WBC RBC Hgb Hct MCV MCH MCHC RDW Std Deviation RDW Coeff of Kami Plt Count MPV Immature Gran % (Auto) Neut % (Auto) Lymph % (Auto) Morgan % (Auto) Eos % (Auto) Baso % (Auto) Absolute Neuts (auto) Absolute Lymphs (auto) Nucleated RBC % Differential Comment Platelet Estimate Anisocytosis PT INR APTT Sodium Potassium Chloride Carbon Dioxide Anion Gap BUN Creatinine Estim Creat Clear Calc Est GFR (MDRD) Af Amer Est GFR (MDRD) Non-Af BUN/Creatinine Ratio Glucose Lactic Acid 6.4 H* Calcium Phosphorus 3.8 Magnesium 2.2 Total Bilirubin AST ALT Alkaline Phosphatase Total Protein Albumin Globulin Albumin/Globulin Ratio Urine Color Urine Clarity Urine pH Ur Specific [place] Urine Protein Urine Glucose (UA) Urine Ketones Urine Occult Blood Urine Nitrite Urine Bilirubin Urine Urobilinogen Ur Leukocyte Esterase Urine RBC Urine WBC Ur Squamous Epith Cells Urine Bacteria Hyaline Casts Urine Mucus Acetone Level NEGATIVE POC Glucose 06/12/22 06/12/22 06/12/22 09:57 10:31 10:35 WBC RBC Hgb Hct MCV MCH MCHC RDW Std Deviation RDW Coeff of Kami Plt Count MPV Immature Gran % (Auto) Neut % (Auto) Lymph % (Auto) Morgan % (Auto) Eos % (Auto) Baso % (Auto) Absolute Neuts (auto) Absolute Lymphs (auto) Nucleated RBC % Differential Comment Platelet Estimate Anisocytosis PT INR APTT Sodium Potassium Chloride Carbon Dioxide Anion Gap BUN Creatinine Estim Creat Clear Calc Est GFR (MDRD) Af Amer Est GFR (MDRD) Non-Af BUN/Creatinine Ratio Glucose Lactic Acid Calcium Phosphorus Magnesium Total Bilirubin AST ALT Alkaline Phosphatase Total Protein Albumin Globulin Albumin/Globulin Ratio Urine Color Yellow Urine Clarity Clear Urine pH 7.0 Ur Specific Sam[place] 1.005 Urine Protein 15 H Urine Glucose (UA) 100 H Urine Ketones Negative Urine Occult Blood Negative Urine Nitrite Positive H Urine Bilirubin Negative Urine Urobilinogen Normal Ur Leukocyte Esterase 100 H Urine RBC 0 SEEN Urine WBC 0-5 SEEN Ur Squamous Epith Cells 0-5 SEEN Urine Bacteria 2+ Hyaline Casts 0-5 SEEN Urine Mucus 0 SEEN Acetone Level POC Glucose > 500 H* > 500 H* 06/12/22 11:18 WBC RBC Hgb Hct MCV MCH MCHC RDW Std Deviation RDW Coeff of Kami Plt Count MPV Immature Gran % (Auto) Neut % (Auto) Lymph % (Auto) Morgan % (Auto) Eos % (Auto) Baso % (Auto) Absolute Neuts (auto) Absolute Lymphs (auto) Nucleated RBC % Differential Comment Platelet Estimate Anisocytosis PT INR APTT Sodium Potassium Chloride Carbon Dioxide Anion Gap BUN Creatinine Estim Creat Clear Calc Est GFR (MDRD) Af Amer Est GFR (MDRD) Non-Af BUN/Creatinine Ratio Glucose Lactic Acid Calcium Phosphorus Magnesium Total Bilirubin AST ALT Alkaline Phosphatase Total Protein Albumin Globulin Albumin/Globulin Ratio Urine Color Urine Clarity Urine pH Ur Specific Sam[place] Urine Protein Urine Glucose (UA) Urine Ketones Urine Occult Blood Urine Nitrite Urine Bilirubin Urine Urobilinogen Ur Leukocyte Esterase Urine RBC Urine WBC Ur Squamous Epith Cells Urine Bacteria Hyaline Casts Urine Mucus Acetone Level POC Glucose > 500 H* ABG Data ABG results: ABG 06/12/22 08:14 Specimen Type BERNY VBG pH 7.47 H VBG pO2 49 H VBG HCO3 18 L VBG Total CO2 19 L VBG O2 Sat (Calc) 87 H VBG Base Excess -5 L POC Mix VBG pCO2 Pt Tmp 25.5 L O2 Delivery Device Room Air Radiography Diagnostic Testing: Clinical Impression(s) from Imaging Studies Chest X-Ray 06/12/22 09:46 IMPRESSION: Elevation of the right hemidiaphragm with a mild degree of atelectasis at the right lung base. A right-sided Port-A-Cath is seen with the tip in the right atrium. Electronically Signed: Mo Curry MD at 10:49 EST , Critical Care Time Critical Care Time: Yes Critical care time (excluding procedures): 30-74 minutes (36), Including time spent:, Discussing w/Patient &/or Family/Orthopaedic Doctor, Discussing w/Consultants, Arranging Admission or Transfer and Performing Direct Patient Care at Bedside Discharge Plan Dx/Rx/DC Orders Clinical Impression: Hyperglycemic hyperosmolar nonketotic coma, Urinary tract infection, Hyperglycemia, Hx of esophageal malignancy, Severe sepsis, Acute kidney injury Disposition Disposition: Acute Care Hospital [facility] [facility]
[2022-06-12] MEDS: 0.9% Normal Saline 1,000 ML 1000 ML IV (08:12)
[2022-06-12 08:20] LABS: Blood Gas Specimen Type VEN; O2 Delivery Device Room Air; VBG BASE EXCESS -5 mmol/L (-1.0-3.5); VBG Bicarbonate 18 mmol/L (22-26); VBG PO2 49 mmHg (25-40); VBG SO2 87 % (50-70); VBG TCO2 19 mmol/L (23-33); VBG pCO2 25.5 mmHg (41-51); VBG pH 7.47 (7.32-7.42)
[2022-06-12 08:31] LABS: Absolute Lymphocyte Count 0.21 X10^3/uL (0.83-4.51); Absolute Neutrophil Count 11.9 X10^3/uL (2.0-7.7); Basophil# 0.03 X10^3/uL; Basophil% 0.2 % (0-1); Hematocrit 25.9 % (40-54); Hemoglobin 8.8 g/dL (13.0-16.5); Lymphocyte # 0.21 X10^3/ul (0.83-4.51); Lymphocyte % 1.6 % (19-41); Mean Corpuscular Hgb 31.2 pg (27.0-32.0); Mean Corpuscular Volume 91.8 fL (80-94); Mean Platelet Vol. 10.4 fl (6.2-12.0); Monocyte# 0.69 X10^3/uL; Monocyte% 5.3 % (0-10); Neutrophil # 11.91 X10^3/uL (2.7-7.7); Neutrophil % 91.2 % (47-70); POSITIVE COUNT YES; POSITIVE DIFFERENTIAL YES; POSITIVE MORPHOLOGY YES; Platelet Count 94 K/mm3 (150-450); RBC Distribution Width SD 79.2 fl (35.1-43.9); Red Blood Count 2.82 M/mm3 (4.6-6.2); White Blood Count 13.1 K/mm3 (4.4-11.0)
[2022-06-12 08:32] LABS: Differential Indicated SCAN CRITERIA MET
[2022-06-12 08:42] LABS: International Normalized Ratio 1.5; Prothrombin Time (Protime)PT. 17.8 SECONDS (11.7-14.9)
[2022-06-12 08:44] LABS: Partial Thromboplast Time 27.8 Seconds (24.1-36.2)
[2022-06-12 08:48] LABS: ALB/GLOB Ratio 0.5 RATIO (0.9-2.4); AST(SGOT) 83 U/L (15-37); Alanine Aminotransfer ALT/SGPT 135 U/L (16-61); Albumin, Serum 1.7 g/dL (3.2-5.0); Alkaline Phosphatase 428 U/L (45-117); Anion Gap 14 (5-15); BUN 51 mg/dL (7-18); BUN/Creat Ratio 28.8 RATIO (10-20); Calcium,Total 7.9 mg/dL (8.5-10.1); Chloride 96 mmol/L (98-107); Creatinine, Serum 1.77 mg/dL (0.70-1.30); EST Glomerular Filtration Rate 44 mL/min (>60); Est Glom Filt Rate - Afr Amer 53 mL/min (>60); Estimated Creatinine Clearance 55.54 ml/min; Globulin 3.1 g/dL (2.2-4.2); Glucose 622 mg/dL (74-106); Potassium 4.4 mmol/L (3.5-5.1); Protein, Total 4.8 g/dL (6.4-8.2); Sodium Level 131 mmol/L (136-145)
[2022-06-12 09:05] LABS: Lactic Acid 6.4 mmol/L (0.4-1.9)
[2022-06-12 09:08] LABS: Platelet Estimate MOD DEC (ADEQ)
[2022-06-12 09:09] LABS: Anisocytosis 1+
[2022-06-12] MEDS: Insulin Lispro 100 UNIT/ML INSULN.PEN 20 UNIT SC (09:23)
--- NOTE | 2022-06-12 09:46 | RAD_ITS ---
STUDY: X-RAY CHEST REASON FOR EXAM: Male, 47 years old. Fever and confusion. Esophageal cancer. TECHNIQUE: Single AP portable view of the chest. COMPARISON: Comparison is made with prior study dated 07/27/2020. FINDINGS: A right-sided Port-A-Cath is seen with the tip in the right atrium. EKG electrodes are seen. There is elevation of the right hemidiaphragm. Mild increased markings at the right lung base suggestive of right basilar atelectasis. There is no demonstrated pleural abnormality. Normal size heart. Normal mediastinum and amalia. Normal visualized pulmonary arteries. There is atherosclerotic calcification of the aortic arch with tortuosity. Normal visualized thoracic spine. Normal visualized ribs, clavicles, and shoulders. Surgical clips are seen in the epigastric region. RAD/Chest 1 View (Portable) IMPRESSION: Elevation of the right hemidiaphragm with a mild degree of atelectasis at the right lung base. A right-sided Port-A-Cath is seen with the tip in the right atrium. Electronically Signed: Mo Curry MD at 10:49 EST ,
[2022-06-12 10:16] LABS: Bedside Glucose > 500 mg/dL (74-106)
[2022-06-12 10:45] LABS: Mucous, Urine 0 SEEN /hpf (<or=2+); Red Blood Cells-Urine 0 SEEN /hpf (0-5)
[2022-06-12 10:48] LABS: Color, Urine Yellow (Yellow); Glucose, Dipstick 100 mg/dl (Normal); Ketone-Dipstick Negative (Negative); Leukocyte Esterase-Dipstick 100 /ul (Negative); Nitrite-Dipstick Positive (Negative); Occult Blood-Urine Negative /ul (Negative); Protein-Dipstick 15 mg/dl (Negative); Specific Gravity, Urine 1.005 (1.002-1.030); Urine Bilirubin Dipstick Negative (Negative); Urine Clarity Clear (Clear); Urine Urobilinogen Normal (Normal)
[2022-06-12 10:51] LABS: Bedside Glucose > 500 mg/dL (74-106)
[2022-06-12 10:56] LABS: Bacteria 2+ /hpf (None Seen); Squamous Epithelial Cells - UA 0-5 SEEN /hpf (0-5); White Blood Cells 0-5 SEEN /hpf (0-5)
[2022-06-12 10:57] LABS: Hyaline Cast 0-5 SEEN /lpf (0-5)
[2022-06-12] MEDS: 0.9% Normal Saline 1,000 ML 999 ML IV ×3 (11:09→15:20)
[2022-06-12] MEDS: levoFLOXacin IV 750 MG/150 ML BAG 100 MG IV (11:32)
[2022-06-12 11:41] LABS: Bedside Glucose > 500 mg/dL (74-106)
--- NOTE | 2022-06-12 12:00 | HP.PCM.HOS_ITS ---
HPI - General General Date of Admission: 06/12/22 Date of Service: 06/12/22 Chief Complaint: Elevated blood glucose HPI Narrative JASON MENDEZ, is a 47 M who presents with the above. Patient has past medical history of stage IV esophageal CA with mets to the brain and liver, status post 4 gamma knife procedures. Patient is on significant amount of dexamethasone and was diagnosed with new type II DM couple of days ago. He was started on metformin 2 days ago. History was from his . She stated that patient dexamethasone recently has been increased to 80 mg 3 times daily. Patient was seen in the ED on 06/08/22 and received IV fluids. He was supposed to follow-up with his primary care doctor the next day and be started on medications. Patient was also seen in the [facility] on 06/10/22 with similar condition. He received insulin and IV fluids. He was discharged home on metformin. Patient's blood sugars have been persistently high more than 500. Patient has been progressively very weak, unable to stand without help. His blood sugar was more than 500. Patient did receive fluid boluses. His vitals in the ED showed blood pressure 110/70, heart rate 89, respiratory 25, temperature 96.8 F, oxygen sat was 95% on room air. WBC count 13.1, hemoglobin 8.8, platelet count is 94, INR is 1.5, sodium is 131, potassium 4.4, chloride 96, bicarbonate 21, BUN 51, creatinine 1.77, up from previous 1.16. Blood glucose was 622, lactic acid 6.4. LFTs are slightly elevated. Admitting chest x-ray shows elevation of the right hemidiaphragm with atelectasis in the right lung base. REPLACED BY [facility] Medical History Throat cancer Home Medications ferrous sulfate 325 mg (65 mg iron) tablet 325 mg PO DAILY iron supplement 07/26/21 [History Last Taken 07/25/21] omeprazole 20 mg capsule,delayed release 40 mg PO DAILY acid reflux 07/26/21 [History Last Taken 07/26/21] acetaminophen 500 mg tablet 500 mg PO Q8H PRN Pain 06/12/22 [History Last Taken Unknown] bumetanide 1 mg tablet 1 mg PO DAILY FLUID 06/12/22 [History Last Taken Unknown] dexamethasone 4 mg tablet 4 mg PO TIDCM STEROID 06/12/22 [History Last Taken Unknown] enoxaparin 40 mg/0.4 mL subcutaneous syringe 40 mg subcut DAILY BLOOD CLOT 06/12/22 [History Last Taken Unknown] levothyroxine 50 mcg tablet 50 mcg PO DAILY THYROID 06/12/22 [History Last Taken Unknown] metformin 500 mg tablet 500 mg PO DAILY 06/12/22 [History Last Taken Unknown] pantoprazole 40 mg tablet,delayed release 40 mg PO DAILY GERD 06/12/22 [History Last Taken Unknown] potassium chloride 20 mEq tablet,extended release(part/cryst) (Klor-Con M) 20 meq PO DAILY SUPPLEMENT 06/12/22 [History Last Taken Unknown] trazodone 50 mg tablet 25 mg PO DAILY INSOMNIA 06/12/22 [History Last Taken Unknown] Allergy/AdvReac Type Severity Reaction Status Date / Time Penicillins Allergy Mild Hives Verified 07/26/21 12:03 Family History (Updated 06/12/22 @ 14:[address] Dilcia Mclaughlin MD) Father No problems noted. Social History Smoking Status: Never smoker ROS Review of Systems ROS Unobtainable: due to encephalopathy and due to mental condition Vital Signs Vital Signs Vital Signs: 06/12/22 07:38 06/12/22 07:43 06/12/22 07:46 Temperature 96.8 F L 96.8 F L Temperature Source Temporal Temporal Pulse Rate 89 89 Respiratory Rate 25 H 25 H Respiratory Effort Normal Non-Labored Respiratory Pattern Tachypnea Blood Pressure 110/70 110/70 Blood Pressure Mean 83 83 Pulse Ox 95 95 Oxygen Delivery Method Room Air Room Air 06/12/22 08:13 06/12/22 09:07 06/12/22 10:22 Temperature 97 F L 96.8 F L Temperature Source Temporal Temporal Pulse Rate 87 95 92 Respiratory Rate 16 29 H 25 H Respiratory Effort Respiratory Pattern Blood Pressure 105/68 117/74 118/77 Blood Pressure Mean 80 88 90 Pulse Ox 93 92 92 Oxygen Delivery Method Room Air Room Air Room Air 06/12/22 11:31 Temperature 97 F L Temperature Source Temporal Pulse Rate 89 Respiratory Rate 23 H Respiratory Effort Respiratory Pattern Blood Pressure 120/78 Blood Pressure Mean 92 Pulse Ox 93 Oxygen Delivery Method Room Air Weight Weight: 131.472 kg Body Mass Index (BMI) 40.4 Physical Exam Narrative Physical exam: General: Alert, Oriented x3, Cooperative, appears lethargic and weak, not able to answer questions much HEENT: Atraumatic Oral: Moist Mucosa Neck: Supple Lungs: Diminished to auscultation Cardiovascular: HS I+II, regular, no murmurs Abdomen: Bowel Sounds Present, Soft, Non Tender Extremities: Bilateral pedal edema +1 Skin: No rashes, No breakdown Neurological: Grossly intact Psych/Mental Status: Appropriate Results Lab / Micro Data Result Diagrams: 06/12/22 08:05 06/12/22 08:05 Labs: Laboratory Results - last 24 hr 06/12/22 08:05: WBC 13.1 H, RBC 2.82 L, Hgb 8.8 L, Hct 25.9 L, MCV 91.8, MCH 31.2, MCHC 34.0, RDW Std Deviation 79.2 H, RDW Coeff of Kami 25.0 H, Plt Count 94 L, MPV 10.4, Immature Gran % (Auto) 1.700 H, Neut % (Auto) 91.2 H, Lymph % (A uto) 1.6 L, Anderson % (Auto) 5.3, Eos % (Auto) 0.0, Baso % (Auto) 0.2, Absolute Neuts (auto) 11.9 H, Absolute Lymphs (auto) 0.21 L, Nucleated RBC % 3.0, Differential Comment COMMENT, Platelet Estimate MOD DEC, Anisocytosis 1+ 06/12/22 08:05: PT 17.8 H, INR 1.5, APTT 27.8 06/12/22 08:05: Sodium 131 L, Potassium 4.4, Chloride 96 L, Carbon Dioxide 21.0, Anion Gap 14, BUN 51 H, Creatinine 1.77 H, Estim Creat Clear Calc 55.54, Est GFR (MDRD) Af Amer 53 L, Est GFR (MDRD) Non-Af 44 L, BUN/Creatinine Ratio 28.8 H, Glucose 622 H*, Calcium 7.9 L, Total Bilirubin 5.10 H, AST 83 H, ALT 135 H, A lkaline Phosphatase 428 H, Total Protein 4.8 L, Albumin 1.7 L, Globulin 3.1, Albumin/Globulin Ratio 0.5 L 06/12/22 08:05: Acetone Level NEGATIVE 06/12/22 08:05: Lactic Acid 6.4 H* 06/12/22 09:57: POC Glucose > 500 H* 06/12/22 10:31: POC Glucose > 500 H* 06/12/22 10:35: Urine Color Yellow, Urine Clarity Clear, Urine pH 7.0, Ur Specific Sallis 1.005, Urine Protein 15 H, Urine Glucose (UA) 100 H, Urine Ketones Negative, Urine Occult Blood Negative, Urine Nitrite Positive H, Urine Bilirubin Negative, Urine Urobilinogen Normal, Ur Leukocyte Esterase 100 H, Urine RBC 0 SEEN, Urine WBC 0-5 SEEN, Ur Squamous Epith Cells 0-5 SEEN, Urine Bacteria 2+, Hyaline Casts 0-5 SEEN, Urine Mucus 0 SEEN 06/12/22 11:18: POC Glucose > 500 H* Micro: Microbiology 06/12/22 08:07 Nasal Secretion SARS-CoV-2 & FLU Antigen (Rapid) - Final ABG Data ABG results: ABG 06/12/22 08:14 Specimen Type BERNY VBG pH 7.47 H VBG pO2 49 H VBG HCO3 18 L VBG Total CO2 19 L VBG O2 Sat (Calc) 87 H VBG Base Excess -5 L POC Mix VBG pCO2 Pt Tmp 25.5 L O2 Delivery Device Room Air Radiology Impression Chest X-Ray 06/12/22 09:46 IMPRESSION: Elevation of the right hemidiaphragm with a mild degree of atelectasis at the right lung base. A right-sided Port-A-Cath is seen with the tip in the right atrium. Electronically Signed: Mo Curry MD at 10:49 EST , Assessment & Plan Assessment/Plan (1) Esophageal cancer, stage IV: (2) Diabetes mellitus, new onset: (3) Hyperosmolar hyperglycemic state (HHS): (4) Hyperglycemia: PLAN: Plan 1. Acute hyperosmolar hyperglycemic state in a newly diagnosed type II DM Patient presented with blood sugars more than 600, no anion gap History of metastatic esophageal CA, on dexamethasone Started on IV insulin drip; hold metformin Admit to ICU, continue on insulin drip, continue on [facility] protocol Check HbA1c 2. Elevated lactic acid secondary to #1 and dehydration. Doubt acute sepsis Admission lactic acid is 6.4, improved to 3.3 with hydration Continue on IV fluid, continue to trend 3. Probable acute UTI, patient not symptomatic, UA mildly suggestive Given IV Levaquin x1 in the ED on account of penicillin allergy We will continue to monitor 4. Stage IV esophageal CA with mets to the brain and liver Follows with oncology team in the [facility] Continue on dexamethasone 5. Hypothyroidism, continue on synthroid 6. GERD, continue on PPI 7. DVT PPx- Lovenox SC I discussed and explained in details the various types of CODE STATUS-full code, DNR CCA, DNR CC today patient's . She stated that patient had always said he wanted to be full code. She however has a home care companion coming out tomorrow to the house to do power of erisa attorney paperwork. She probably will need to let her come to the hospital. She also stated the patient has a living will and in the event of a persistent vegetative state, he does not want to be kept alive. She clarified that however until the persistent vegetative state happens, she wants everything done to keep him alive. Time spent discussing CODE STATUS 18 minutes Charges/Coding Visit Charges Inpatient E&M: 72710 Init Hosp L3 Procedures Hospitalists Procedures: 01615 Advncd Care Plan 30 Min
--- NOTE | 2022-06-12 12:27 | CM.ED ---
CANDI Note Referral Source: machine operator replanter Reason: Home Health for support for patient when discharged CANDI met with patient's fiance', Petra. Petra said that patient uses walker at home. Petra said that patient has been having difficult to standing up. Petra said that patient's condition has decompensated for the past 3 weeks. Petra said that it would benefit for help so she could return to work. CANDI explained home health services are time limited and not for extensive periods of time and Petra said I will take whatever I can. Petra stated that patient would benefit from having someone work with him on my range of motion. Petra said that patient is currently getting chemo, Zirabev but does not have a upcoming chemo appointment scheduled. Patient is a patient of Dr. Egan at [facility]. Per Petra patient has a diagnosis of stage 4 esophageal cancer with mets to the brain and liver. Patient's sister is currently sitting with the patient during the day as the sister can work at the home. Patient currently has [employer] through his employer. Petra said that patient has been getting weaker and weaker. Petra said that patient takes his meds are ok. Petra said that patient has to be made to eat or drink and patient's sister does not patient eat or drink. Petra reports interest in home health at discharge and voiced interest in [facility] Home Health. CANDI and Athletic Equipment Custodian, Paige discussed palliative care referral with and MD Young indicated that this scientific technical writer could speak to Petra about palliative care. Petra is aware of palliative services and voiced agreement with referral for palliative care but requests referral to [facility] palliative care. Patient's house is a split level home. CANDI called [facility] Home Health and spoke to Juliana in intake. Juliana said that patient has MMO insurance and then patient is in network. (per Petra patient is not in network with MMO [employer] for [facility]) CANDI updated Petra regarding Home Health stating that they are in network for patient with MMO insurance. CANDI provided resources on Treatment navigator, Home Health and [place] [facility]. Plan: Resource Dana FRENCH
[2022-06-12 12:36] LABS: Magnesium 2.2 mg/dL (1.6-2.6); Phosphorus 3.8 mg/dL (2.5-4.9)
[2022-06-12 12:44] LABS: Reflex Lactate? Y
[2022-06-12 13:28] LABS: Lactic Acid 3.3 mmol/L (0.4-1.9)
[2022-06-12 16:03] LABS: Anion Gap 12 (5-15); BUN 45 mg/dL (7-18); BUN/Creat Ratio 30.4 RATIO (10-20); Calcium,Total 7.8 mg/dL (8.5-10.1); Chloride 101 mmol/L (98-107); Creatinine, Serum 1.48 mg/dL (0.70-1.30); EST Glomerular Filtration Rate 54 mL/min (>60); Est Glom Filt Rate - Afr Amer 66 mL/min (>60); Estimated Creatinine Clearance 66.42 ml/min; Glucose 385 mg/dL (74-106); Potassium 3.1 mmol/L (3.5-5.1); Sodium Level 135 mmol/L (136-145)
[2022-06-12] MEDS: dexAMETHasone 4 MG Tablet 8 MG PO (16:32)
[2022-06-12] MEDS: 0.9% Normal Saline 1,000 ML 125 ML IV (16:33)
[2022-06-12] MEDS: Potassium Chloride Oral Tablet 20 MEQ 60 MEQ PO (16:37)
[2022-06-12] MEDS: oxyCODONE 5 MG Tablet PO (16:38)
[2022-06-12 16:53] LABS: Hemoglobin A1c 8.3 % (3.8-5.6)
[2022-06-12] MEDS: Insulin Glargine-YFGN 100 UNIT/ML Pen 15 UNIT SC (17:16)
[2022-06-12 17:45] LABS: Bedside Glucose 283 mg/dL (74-106)
[2022-06-12 18:46] LABS: Bedside Glucose 283 mg/dL (74-106)
[2022-06-12 19:25] LABS: Anion Gap 9 (5-15); BUN 43 mg/dL (7-18); BUN/Creat Ratio 33.6 RATIO (10-20); Calcium,Total 7.7 mg/dL (8.5-10.1); Chloride 102 mmol/L (98-107); Creatinine, Serum 1.28 mg/dL (0.70-1.30); EST Glomerular Filtration Rate 64 mL/min (>60); Est Glom Filt Rate - Afr Amer 78 mL/min (>60); Estimated Creatinine Clearance 69.77 ml/min; Glucose 284 mg/dL (74-106); Potassium 3.3 mmol/L (3.5-5.1); Sodium Level 136 mmol/L (136-145)
[2022-06-12 21:45] LABS: Bedside Glucose 246 mg/dL (74-106)
[2022-06-12 21:45] LABS: Bedside Glucose 247 mg/dL (74-106)
[2022-06-12 22:55] LABS: Bedside Glucose 206 mg/dL (74-106)
[2022-06-13] VITALS (17 sets, daily range): BP systolic 100–134; BP diastolic 62–86; PULSE 83–99; RESP 11–27; TEMP 36.3–36.8; O2SAT 89–97
[2022-06-13 00:10] LABS: Bedside Glucose 221 mg/dL (74-106)
[2022-06-13 00:21] LABS: Anion Gap 8 (5-15); BUN 43 mg/dL (7-18); BUN/Creat Ratio 31.2 RATIO (10-20); Calcium,Total 7.8 mg/dL (8.5-10.1); Chloride 104 mmol/L (98-107); Creatinine, Serum 1.38 mg/dL (0.70-1.30); EST Glomerular Filtration Rate 59 mL/min (>60); Est Glom Filt Rate - Afr Amer 71 mL/min (>60); Estimated Creatinine Clearance 64.71 ml/min; Glucose 233 mg/dL (74-106); Potassium 3.8 mmol/L (3.5-5.1); Sodium Level 137 mmol/L (136-145)
[2022-06-13] MEDS: 0.9% Saline Lock 10 ML Syringe IV ×2 (01:49→04:50)
[2022-06-13 04:31] LABS: Bedside Glucose 172 mg/dL (74-106)
[2022-06-13 04:31] LABS: Bedside Glucose 190 mg/dL (74-106)
[2022-06-13 04:58] LABS: Absolute Lymphocyte Count 0.53 X10^3/uL (0.83-4.51); Absolute Neutrophil Count 13.3 X10^3/uL (2.0-7.7); Basophil# 0.04 X10^3/uL; Basophil% 0.3 % (0-1); Hematocrit 25.6 % (40-54); Hemoglobin 8.7 g/dL (13.0-16.5); Lymphocyte # 0.53 X10^3/ul (0.83-4.51); Lymphocyte % 3.5 % (19-41); Mean Corpuscular Volume 91.1 fL (80-94); Mean Platelet Vol. 10.1 fl (6.2-12.0); Monocyte# 0.86 X10^3/uL; Monocyte% 5.8 % (0-10); NRBC Flagged by Analyzer 2.4 % (0-5); Neutrophil # 13.29 X10^3/uL (2.7-7.7); Neutrophil % 88.9 % (47-70); POSITIVE COUNT YES; POSITIVE DIFFERENTIAL YES; POSITIVE MORPHOLOGY YES; Platelet Count 80 K/mm3 (150-450); RBC Distribution Width CV 25.2 % (11.6-14.6); Red Blood Count 2.81 M/mm3 (4.6-6.2); White Blood Count 14.9 K/mm3 (4.4-11.0)
[2022-06-13 04:59] LABS: Differential Indicated SCAN CRITERIA MET
[2022-06-13] MEDS: Levothyroxine 50 MCG Tablet PO (05:01)
[2022-06-13 05:06] LABS: Bedside Glucose 135 mg/dL (74-106)
[2022-06-13 05:11] LABS: Anisocytosis 2+; Differential Comment SCANNED; Macrocytosis 1+; Microcytosis 1+
[2022-06-13 05:12] LABS: Ovalocyte RARE; Polychromasia 1+
[2022-06-13 05:20] LABS: ALB/GLOB Ratio 0.5 RATIO (0.9-2.4); AST(SGOT) 60 U/L (15-37); Alanine Aminotransfer ALT/SGPT 128 U/L (16-61); Albumin, Serum 1.6 g/dL (3.2-5.0); Alkaline Phosphatase 374 U/L (45-117); Anion Gap 8 (5-15); BUN 44 mg/dL (7-18); BUN/Creat Ratio 30.1 RATIO (10-20); Calcium,Total 7.9 mg/dL (8.5-10.1); Chloride 103 mmol/L (98-107); Creatinine, Serum 1.46 mg/dL (0.70-1.30); EST Glomerular Filtration Rate 55 mL/min (>60); Est Glom Filt Rate - Afr Amer 67 mL/min (>60); Estimated Creatinine Clearance 61.16 ml/min; Glucose 169 mg/dL (74-106); Potassium 3.8 mmol/L (3.5-5.1); Protein, Total 4.6 g/dL (6.4-8.2); Sodium Level 136 mmol/L (136-145)
--- NOTE | 2022-06-13 09:28 | PN.HOSP_ITS ---
Subjective Subjective Follow-up on Acute HHS: Patient was seen and examined. His blood sugars are much better. Been off the insulin drip at 0500HRS. Started on long-acting insulin. Denied any new complaints. 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 He was started on IV ceftriaxone with no issues. Patient has a reported history of hives with penicillin. Objective Data Objective Data Vital Signs: Vital Signs Temp Pulse Resp BP Pulse Ox O2 Del Method O2 Flow Rate 98.2 F 92 27 H 121/81 H 95 Room Air 2 06/13/22 03:00 06/13/22 08:00 06/13/22 08:00 06/13/22 08:00 06/13/22 08:00 06/13/22 08:00 06/13/22 07:00 Oxygen Flow Rate (L/min) 2 Oxygen Delivery Method Room Air Weight: 129.7 kg Body Mass Index (BMI) 43.5 Intake & Output: Intake and Output for Last 24 Hours 06/11/22 06/12/22 06/13/22 23:59 23:59 23:59 Intake Total 5077.54 / 5077.54 219.06 / 219.06 Output Total 750 / 1150 400 / 400 Balance 4327.54 / 3927.54 -180.94 / -180.94 Lab / Micro Data Result Diagrams: 06/13/22 04:40 06/13/22 04:40 Labs: Laboratory Results - last 24 hr 06/12/22 08:05: Phosphorus 3.8, Magnesium 2.2 06/12/22 09:57: POC Glucose > 500 H* 06/12/22 10:31: POC Glucose > 500 H* 06/12/22 10:35: Urine Color Yellow, Urine Clarity Clear, Urine pH 7.0, Ur Specific [place] 1.005, Urine Protein 15 H, Urine Glucose (UA) 100 H, Urine K etones Negative, Urine Occult Blood Negative, Urine Nitrite Positive H, Urine Bilirubin Negative, Urine Urobilinogen Normal, Ur Leukocyte Esterase 100 H, Urine RBC 0 SEEN, Urine WBC 0-5 SEEN, Ur Squamous Epith Cells 0-5 SEEN, Urine Bacteria 2+, Hyaline Casts 0-5 SEEN, Urine Mucus 0 SEEN 06/12/22 11:18: POC Glucose > 500 H* 06/12/22 12:50: Lactic Acid 3.3 H* 06/12/22 15:30: Sodium 135 L, Potassium 3.1 L, Chloride 101, Carbon Dioxide 22.0, Anion Gap 12, BUN 45 H, Creatinine 1.48 H, Estim Creat Clear Calc 66.42, Est GFR (MDRD) Af Amer 66, Est GFR (MDRD) Non-Af 54 L, BUN/Creatinine Ratio 30.4 H, Glucose 385 H, Calcium 7.8 L 06/12/22 15:30: Hemoglobin A1c 8.3 H 06/12/22 17:15: POC Glucose 283 H 06/12/22 18:27: POC Glucose 283 H 06/12/22 18:55: Sodium 136, Potassium 3.3 L, Chloride 102, Carbon Dioxide 25.0, Anion Gap 9, BUN 43 H, Creatinine 1.28, Estim Creat Clear Calc 69.77, Est GFR (MDRD) Af Amer 78, Est GFR (MDRD) Non-Af 64, BUN/Creatinine Ratio 33.6 H, Glucose 284 H, Calcium 7.7 L 06/12/22 20:16: POC Glucose 246 H 06/12/22 21:26: POC Glucose 247 H 06/12/22 22:34: POC Glucose 206 H 06/12/22 23:42: POC Glucose 221 H 06/12/22 23:55: Sodium 137, Potassium 3.8, Chloride 104, Carbon Dioxide 25.0, Anion Gap 8, BUN 43 H, Creatinine 1.38 H, Estim Creat Clear Calc 64.71, Est GFR (MDRD) Af Amer 71, Est GFR (MDRD) Non-Af 59 L, BUN/Creatinine Ratio 31.2 H, Gluc ose 233 H, Calcium 7.8 L 06/13/22 01:48: POC Glucose 190 H 06/13/22 03:07: POC Glucose 172 H 06/13/22 04:40: WBC 14.9 H, RBC 2.81 L, Hgb 8.7 L, Hct 25.6 L, MCV 91.1, MCH 31.0, MCHC 34.0, RDW Std Deviation 80.0 H, RDW Coeff of Kami 25.2 H, Plt Count 80 L, MPV 10.1, Immature Gran % (Auto) 1.500 H, Neut % (Auto) 88.9 H, Lymph % (Auto) 3.5 L, [place] % (Auto) 5.8, Eos % (Auto) 0.0, Baso % (Auto) 0.3, Absolute Neuts (auto) 13.3 H, Absolute Lymphs (auto) 0.53 L, Nucleated RBC % 2.4, Differential Comment SCANNED, Polychromasia 1+, Anisocytosis 2+, Microcytosis 1+, Macrocytosis 1+, Ovalocytes RARE 06/13/22 04:40: Sodium 136, Potassium 3.8, Chloride 103, Carbon Dioxide 25.0, Anion Gap 8, BUN 44 H, Creatinine 1.46 H, Estim Creat Clear Calc 61.16, Est GFR (MDRD) Af Amer 67, Est GFR (MDRD) Non-Af 55 L, BUN/Creatinine Ratio 30.1 H, Glucose 169 H, Calcium 7.9 L, Total Bilirubin 4.00 H, AST 60 H, ALT 128 H, Alkaline Phosphatase 374 H, Total Protein 4.6 L, Albumin 1.6 L, Globulin 3.0, Albumin/Globulin Ratio 0.5 L 06/13/22 04:45: POC Glucose 135 H Micro: Microbiology 06/12/22 08:05 Blood Culture (Wb) - Port Blood Culture - Preliminary GNR lactose customer contact sales associate 06/12/22 08:18 Blood Culture (Wb) - Port Blood Culture - Preliminary GNR lactose customer contact sales associate 06/12/22 08:07 Nasal Secretion SARS-CoV-2 & FLU Antigen (Rapid) - Final Radiography Diagnostic Testing: Radiology Impression Chest X-Ray 06/12/22 09:46 IMPRESSION: Elevation of the right hemidiaphragm with a mild degree of atelectasis at the right lung base. A right-sided Port-A-Cath is seen with the tip in the right atrium. Electronically Signed: Mo Curry MD at 10:49 EST , Physical Exam Narrative Physical exam: General: Alert, Oriented x3, Cooperative, appears very frail and slow, on 2L oxygen HEENT: Atraumatic Oral: Moist Mucosa Neck: Supple Lungs: Diminished to auscultation Cardiovascular: HS I+II, regular, no murmurs Abdomen: Bowel Sounds Present, Soft, Non Tender Extremities: Bilateral leg edema +1 Skin: No rashes, No breakdown Neurological: Grossly intact Psych/Mental Status: Appropriate Assessment & Plan Assessment/Plan (1) Esophageal cancer, stage IV: (2) Diabetes mellitus, new onset: (3) Hyperosmolar hyperglycemic state (HHS): (4) Hyperglycemia: PLAN: Plan 1. Acute hyperosmolar hyperglycemic state in a newly diagnosed type II DM, resolved Patient is off insulin drip, transitioned to long-acting insulin HgbA1c is 8.3, continue to monitor with insulin sliding scale 2. 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 Stage IV esophageal CA with mets to the brain and liver Follows with oncology team in the [facility] Continue on dexamethasone 4. Hypothyroidism, continue on synthroid 5. GERD, continue on PPI 6. Debility, acute on chronic, related to the above PT/OT to evaluate and treat 7. DVT PPx- Lovenox SC Disposition: Probable Home with [facility] tomorrow Charges/Coding Visit Charges Inpatient E&M: 54005 Subs Hosp L3
[2022-06-13] MEDS: dexAMETHasone 4 MG Tablet 8 MG PO ×3 (09:41→16:53)
[2022-06-13] MEDS: Multivitamins,Therapeutic Tablet 1 TABLET PO (09:41)
[2022-06-13] MEDS: Potassium Chloride Oral Tablet 20 MEQ 40 MEQ PO ×2 (09:41→16:53)
[2022-06-13] MEDS: Ferrous Sulfate 325 MG Tablet PO (09:41)
[2022-06-13] MEDS: Pantoprazole Sodium 40 MG Tablet PO (09:41)
[2022-06-13] MEDS: Enoxaparin 40 MG/0.4 ML Syringe SC (09:42)
[2022-06-13] MEDS: Insulin Lispro 100 UNIT/ML INSULN.PEN SC ×3 (12:13→22:07)
[2022-06-13 12:41] LABS: Bedside Glucose 273 mg/dL (74-106)
[2022-06-13 17:20] LABS: Bedside Glucose 309 mg/dL (74-106)
[2022-06-13] MEDS: Insulin Glargine-YFGN 100 UNIT/ML Pen 10 UNIT SC (22:02)
[2022-06-13 22:20] LABS: Bedside Glucose 341 mg/dL (74-106)
[2022-06-14] VITALS (12 sets, daily range): BP systolic 111–126; BP diastolic 66–79; PULSE 68–99; RESP 16–22; TEMP 36.6–36.8; O2SAT 93–97
--- NOTE | 2022-06-14 | FLU_PTH ---
PATIENT: JASON MENDEZ Jr. LOC: [facility] U#:[id number] AGE/SX: 47/M ROOM: [facility] RE06/12/[address]: Dr. Akila Sullivan MD : [id number] BED: 1 DIS: 06/17/2022 SPEC #: [id number] RECD: 06/15/22 12:25 STATUS: JEANETTE REQ #: [id number] SERGO: 06/14/22 00:[address]: Dilcia Mclaughlin DEPT: CYTOLOGY RECD BY: Bryanna Castillo ENTERED: 06/15/22 12:26 SP TYPE: Fluid OTHR DR: MD Dr. Ghazala Bah MD Dr. Lapman Lun, MD Dr. Mir Ali, MD Dr. Paul Masci, DO Dr. Robert Leininger, MD Christy Haagen, [employer] Tissues: PARACENTESIS FLUID Procedures: Special Stain Group II Surgery Specimen Level IV Cytospin Fluid HEADER OPERATION: Ultrasound-guided paracentesis right PRE-OP DIAGNOSIS: Ascites TISSUE SUBMITTED: Paracentesis fluid for cytology DIAGNOSIS CYTOLOGY Paracentesis fluid for cytology (cytospin and cell block): Negative for malignant cells. Acute inflammation. SEN:pilar 06/16/2022 CYTOLOGY STUDY Slides are reviewed. CYTOLOGY GROSS Received is 50 ml of yellow cloudy fluid labeled with the patient's name and and designated per the requisition as paracentesis. Submitted for cytology preparation including cell block. / pilar 06/15/2022 TC:2 CPT: 63565, 65070
[2022-06-14] MEDS: 0.9% Saline Lock 10 ML Syringe IV (04:16)
[2022-06-14 04:26] LABS: Absolute Lymphocyte Count 0.25 X10^3/uL (0.83-4.51); Absolute Neutrophil Count 9.2 X10^3/uL (2.0-7.7); Basophil# 0.01 X10^3/uL; Basophil% 0.1 % (0-1); Hematocrit 22.8 % (40-54); Hemoglobin 7.7 g/dL (13.0-16.5); Lymphocyte # 0.25 X10^3/ul (0.83-4.51); Lymphocyte % 2.5 % (19-41); Mean Corp Hgb Conc 33.8 g/dL (32-36); Mean Corpuscular Hgb 30.8 pg (27.0-32.0); Mean Corpuscular Volume 91.2 fL (80-94); Monocyte# 0.48 X10^3/uL; Monocyte% 4.8 % (0-10); NRBC Flagged by Analyzer 0.9 % (0-5); Neutrophil # 9.19 X10^3/uL (2.7-7.7); Neutrophil % 91.5 % (47-70); POSITIVE COUNT YES; POSITIVE DIFFERENTIAL YES; POSITIVE MORPHOLOGY YES; RBC Distribution Width CV 25.2 % (11.6-14.6); RBC Distribution Width SD 79.9 fl (35.1-43.9)
[2022-06-14 04:34] LABS: Differential Indicated SCAN CRITERIA MET; Platelet Count 47 K/mm3 (150-450)
[2022-06-14 04:40] LABS: Differential Comment SCANNED
[2022-06-14 04:43] LABS: ALB/GLOB Ratio 0.6 RATIO (0.9-2.4); AST(SGOT) 69 U/L (15-37); Alanine Aminotransfer ALT/SGPT 123 U/L (16-61); Albumin, Serum 1.5 g/dL (3.2-5.0); Alkaline Phosphatase 361 U/L (45-117); Anion Gap 6 (5-15); BUN 47 mg/dL (7-18); BUN/Creat Ratio 36.4 RATIO (10-20); Calcium,Total 7.6 mg/dL (8.5-10.1); Chloride 105 mmol/L (98-107); Creatinine, Serum 1.29 mg/dL (0.70-1.30); EST Glomerular Filtration Rate 64 mL/min (>60); Est Glom Filt Rate - Afr Amer 77 mL/min (>60); Estimated Creatinine Clearance 69.22 ml/min; Globulin 2.6 g/dL (2.2-4.2); Glucose 364 mg/dL (74-106); Potassium 4.5 mmol/L (3.5-5.1); Protein, Total 4.1 g/dL (6.4-8.2); Sodium Level 137 mmol/L (136-145)
[2022-06-14 04:48] LABS: Anisocytosis 3+; Macrocytosis 1+; Microcytosis 1+
[2022-06-14 04:49] LABS: Ovalocyte 1+; Polychromasia 1+
--- NOTE | 2022-06-14 05:08 | PCM.PN.BLA ---
Progress Note With platelets of 47 discontinue Lovenox. SCDs ordered.
[2022-06-14] MEDS: Insulin Lispro 100 UNIT/ML INSULN.PEN SC ×4 (06:28→21:14)
[2022-06-14 07:00] LABS: Bedside Glucose 326 mg/dL (74-106)
--- NOTE | 2022-06-14 07:18 | PCM.PN.HOSP ---
Subjective Subjective Follow-up on Acute HHS: Patient was seen and examined. Patient has persistent flat affect. Denied any pain. He admits that he is depressed. He however does not want any medications. Objective Data Objective Data Vital Signs: Vital Signs Temp Pulse Resp BP Pulse Ox O2 Del Method O2 Flow Rate 97.8 F 80 18 111/72 96 Nasal Cannula 2 06/14/22 03:22 06/14/22 03:22 06/14/22 03:22 06/14/22 03:22 06/14/22 03:22 06/14/22 03:22 06/14/22 03:22 Oxygen Flow Rate (L/min) 2 Oxygen Delivery Method Nasal Cannula Weight: 129.4 kg Body Mass Index (BMI) 43.5 Intake & Output: Intake and Output for Last 24 Hours 06/12/22 06/13/22 06/14/22 23:59 23:59 23:59 Intake Total 5077.54 / 5077.54 389.06 / 389.06 0 / 0 Output Total 750 / 1150 1300 / 1300 150 / 150 Balance 4327.54 / 3927.54 -910.94 / -910.94 -150 / -150 Lab / Micro Data Result Diagrams: 06/14/22 04:15 06/14/22 04:15 Labs: Laboratory Results - last 24 hr 06/13/22 12:09: POC Glucose 273 H 06/13/22 16:51: POC Glucose 309 H 06/13/22 21:59: POC Glucose 341 H 06/14/22 04:15: WBC 10.0, RBC 2.50 L, Hgb 7.7 L, Hct 22.8 L, MCV 91.2, MCH 30.8, MCHC 33.8, RDW Std Deviation 79.9 H, RDW Coeff of Kami 25.2 H, Plt Count 47 L*, Immature Gran % (Auto) 1.100 H, Neut % (Auto) 91.5 H, Lymph % (Auto) 2.5 L, [place] % (Auto) 4.8, Eos % (Auto) 0.0, Baso % (Auto) 0.1, Absolute Neuts (auto) 9.2 H, Absolute Lymphs (auto) 0.25 L, Nucleated RBC % 0.9, Differential Comment SCANNED, Diff Path Review May foll, Polychromasia 1+, Anisocytosis 3+, Microcytosis 1+, Macrocytosis 1+, Ovalocytes 1+ 06/14/22 04:15: Sodium 137, Potassium 4.5, Chloride 105, Carbon Dioxide 26.0, Anion Gap 6, BUN 47 H, Creatinine 1.29, Estim Creat Clear Calc 69.22, Est GFR (MDRD) Af Amer 77, Est GFR (MDRD) Non-Af 64, BUN/Creatinine Ratio 36.4 H, Glucose 364 H, Calcium 7.6 L, Total Bilirubin 5.00 H, AST 69 H, ALT 123 H, Alkaline Phosphatase 361 H, Total Protein 4.1 L, Albumin 1.5 L, Globulin 2.6, Albumin/Globulin Ratio 0.6 L 06/14/22 06:26: POC Glucose 326 H Micro: Microbiology 06/12/22 08:05 Blood Culture (Wb) - Port Blood Culture - Preliminary GNR lactose vice president pharmacy 06/12/22 08:18 Blood Culture (Wb) - Port Blood Culture - Preliminary GNR lactose vice president pharmacy 06/12/22 08:07 Nasal Secretion SARS-CoV-2 & FLU Antigen (Rapid) - Final Physical Exam Narrative Physical exam: General: Alert, Oriented x3, Cooperative, appears very frail and slow, on 2L oxygen HEENT: Atraumatic Oral: Moist Mucosa Neck: Supple Lungs: Diminished to auscultation Cardiovascular: HS I+II, regular, no murmurs Abdomen: Bowel Sounds Present, Soft, Non Tender Extremities: Bilateral leg edema +1 Skin: No rashes, No breakdown Neurological: Grossly intact Psych/Mental Status: Flat affect Assessment & Plan Assessment/Plan (1) Esophageal cancer, stage IV: (2) Diabetes mellitus, new onset: (3) Hyperosmolar hyperglycemic state (HHS): (4) Hyperglycemia: PLAN: Plan 1. Acute hyperosmolar hyperglycemic state in a newly diagnosed type II DM, resolved Off insulin drip, HgbA1c is 8.3, blood sugars remain uncontrolled Will increase Lantus to 10 units twice daily, continue to monitor with insulin sliding scale 2. 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 Thrombocytopenia, severe, new, gradual drop in platelets over the last couple of days Platelet count is 47, Lovenox discontinued, will check LDH, fibrinogen, INR, reticulocyte count Hematology consult 4. Stage IV esophageal CA with mets to the brain and liver, patient is appropriate for palliative care consult Follows with oncology team in the [facility] Continue on dexamethasone 5. Hypothyroidism, continue on synthroid 6. GERD, continue on PPI 7. Debility, acute on chronic, related to the above PT/OT to evaluate and treat 8. DVT PPx- SCDs Charges/Coding Visit Charges Inpatient E&M: 67359 [facility] Hosp L3
[2022-06-14 10:00] LABS: Immature Platelet Fraction 6.5 % (1.0-7.9); Platelet Count 53 K/mm3 (150-450); Reticulocyte Count 2.52 % (0.5-1.5)
[2022-06-14 10:17] LABS: Fibrinogen 215 mg/dl (203-444); International Normalized Ratio 1.3; Prothrombin Time (Protime)PT. 15.7 SECONDS (11.7-14.9)
[2022-06-14 10:41] LABS: LDH 716 U/L (87-241)
--- NOTE | 2022-06-14 11:18 | PCM.CONS.B ---
Consult Date of Consult: 06/14/22 Reason for Consult Metastatic esophageal cancer Change in mental status Anemia and thrombocytopenia GENET MENDEZ, is a 47 M who presents with metastatic esophageal cancer with brain metastases undergoing treatment with Dr. Egan.? Patient has past medical history of stage IV esophageal CA with mets to the brain and liver, status post 4 gamma knife procedures.? His last palliative chemotherapy with Enhertu was 4 weeks ago. He has progressive mental decline for over the last month an MRI scan of the brain after gamma knife therapy shows significant edema possibly secondary to progression disease versus tumor/brain necrosis. His last Avastin treatment was 2 weeks ago. With mental status decline, his dexamethasone was increased to 8 mg 3 times daily. He was diagnosed with severe hyperglycemia.? He was started on metformin 2 days ago. ? Patient was seen in the ED on 06/08/22 and received IV fluids.? He was supposed to follow-up with his primary care doctor the next day and be started on medications.? He received insulin and IV fluids.? He was discharged home on metformin.? Patient's blood sugars have been persistently high more than 500.? Patient has been progressively very weak, unable to stand without help.? His blood sugar was more than 500.? His vitals in the ED showed blood pressure 110/70, heart rate 89, respiratory 25, temperature 96.8 F, oxygen sat was 95% on room air.? WBC count 13.1, hemoglobin 8.8, platelet count is 94, INR is 1.5, sodium is 131, potassium 4.4, chloride 96, bicarbonate 21, BUN 51, creatinine 1.77, up from previous 1.16.? Blood glucose was 622, lactic acid 6.4.? LFTs are slightly elevated.? Admitting chest x-ray shows elevation of the right hemidiaphragm with atelectasis in the right lung base. His blood cultures came back positive for gram-negative rods bacteremia. Since this admission, his platelet count decreased with increased bilirubin probably secondary to sepsis. No clinical bleeding or evidence of DIC, although his prothrombin time is slightly elevated PFSH Medical History? Throat cancer Home Medications ferrous sulfate 325 mg (65 mg iron) tablet 325 mg PO DAILY iron supplement 07/26/21 [History Last Taken 07/25/21] omeprazole 20 mg capsule,delayed release 40 mg PO DAILY acid reflux 07/26/21 [History Last Taken 07/26/21] acetaminophen 500 mg tablet 500 mg PO Q8H PRN Pain 06/12/22 [History Last Taken Unknown] bumetanide 1 mg tablet 1 mg PO DAILY FLUID 06/12/22 [History Last Taken Unknown] dexamethasone 4 mg tablet 4 mg PO TIDCM STEROID 06/12/22 [History Last Taken Unknown] enoxaparin 40 mg/0.4 mL subcutaneous syringe 40 mg subcut DAILY BLOOD CLOT 06/12/22 [History Last Taken Unknown] levothyroxine 50 mcg tablet 50 mcg PO DAILY THYROID 06/12/22 [History Last Taken Unknown] metformin 500 mg tablet 500 mg PO DAILY 06/12/22 [History Last Taken Unknown] pantoprazole 40 mg tablet,delayed release 40 mg PO DAILY GERD 06/12/22 [History Last Taken Unknown] potassium chloride 20 mEq tablet,extended release(part/cryst) (Klor-Con M) 20 meq PO DAILY SUPPLEMENT 06/12/22 [History Last Taken Unknown] trazodone 50 mg tablet 25 mg PO DAILY INSOMNIA 06/12/22 [History Last Taken Unknown] Allergy/AdvReac Type Severity Reaction Status Date / Time Penicillins Allergy Mild Hives Verified 07/26/21 12:03 Family History?(Updated 06/12/22 @ 14:[address] Dilcia Mclaughlin MD) Father ?? No problems noted. Social History? Smoking Status:? Never smoker ROS Review of Systems ROS Unobtainable: due to encephalopathy and due to mental condition Vital Signs Vital Signs Vital Signs: ? 06/12/22 07:38 06/12/22 07:43 06/12/22 07:46 Temperature 96.8 F L 96.8 F L ? Temperature Source Temporal Temporal ? Pulse Rate 89 89 ? Respiratory Rate 25 H 25 H ? Respiratory Effort ? ? Normal Non-Labored Respiratory Pattern ? ? Tachypnea Blood Pressure 110/70 110/70 ? Blood Pressure Mean 83 83 ? Pulse Ox 95 95 ? Oxygen Delivery Method Room Air Room Air ? ? 06/12/22 08:13 06/12/22 09:07 06/12/22 10:22 Temperature ? 97 F L 96.8 F L Temperature Source ? Temporal Temporal Pulse Rate 87 95 92 Respiratory Rate 16 29 H 25 H Respiratory Effort ? ? ? Respiratory Pattern ? ? ? Blood Pressure 105/68 117/74 118/77 Blood Pressure Mean 80 88 90 Pulse Ox 93 92 92 Oxygen Delivery Method Room Air Room Air Room Air ? 06/12/22 11:31 Temperature 97 F L Temperature Source Temporal Pulse Rate 89 Respiratory Rate 23 H Respiratory Effort ? Respiratory Pattern ? Blood Pressure 120/78 Blood Pressure Mean 92 Pulse Ox 93 Oxygen Delivery Method Room Air Weight Weight: ? 131.472 kg? Body Mass Index (BMI) ? 40.4? Physical Exam Narrative Physical exam: General: Cooperative, appears lethargic and weak, not able to answer questions much HEENT: Atraumatic Oral: Moist Mucosa Neck: Supple Lungs: Diminished to auscultation Cardiovascular: HS I+II, regular, no murmurs Abdomen: Bowel Sounds Present, Soft, Non Tender Extremities: Bilateral pedal edema +1 Skin: No rashes, No breakdown Neurological: Grossly intact Psych/Mental Status: Appropriate Results Lab / Micro Data Result Diagrams: 06/12/22 08:05? 06/12/22 08:05? Labs: Laboratory Results - last 24 hr 06/12/22 08:05: WBC 13.1 H,?RBC 2.82 L,?Hgb 8.8 L,?Hct 25.9 L, MCV 91.8, MCH 31.2, MCHC 34.0,?RDW Std Deviation 79.2 H,?RDW Coeff of Kami 25.0 H,?Plt Count 94 L, MPV 10.4,?Immature Gran % (Auto) 1.700 H,?Neut % (Auto) 91.2 H,?Lymph % (Auto) 1.6 L, [place] % (Auto) 5.3, Eos % (Auto) 0.0, Baso % (Auto) 0.2,?Absolute Neuts (auto) 11.9 H,?Absolute Lymphs (auto) 0.21 L, Nucleated RBC % 3.0, Differential Comment COMMENT, Platelet Estimate MOD DEC, Anisocytosis 1+ 06/12/22 08:05: PT 17.8 H, INR 1.5, APTT 27.8 06/12/22 08:05: Sodium 131 L, Potassium 4.4,?Chloride 96 L, Carbon Dioxide 21.0, Anion Gap 14,?BUN 51 H,?Creatinine 1.77 H, Estim Creat Clear Calc 55.54,?Est GFR (MDRD) Af Amer 53 L,?Est GFR (MDRD) Non-Af 44 L,?BUN/Creatinine Ratio 28.8 H,?Glucose 622 H*,?Calcium 7.9 L,?Total Bilirubin 5.10 H,?AST 83 H,?ALT 135 H,?Alkaline Phosphatase 428 H,?Total Protein 4.8 L,?Albumin 1.7 L, Globulin 3.1,?Albumin/Globulin Ratio 0.5 L 06/12/22 08:05:?Acetone Level NEGATIVE 06/12/22 08:05: Lactic Acid 6.4 H* 06/12/22 09:57: POC Glucose > 500 H* 06/12/22 10:31: POC Glucose > 500 H* 06/12/22 10:35:?Urine Color Yellow, Urine Clarity Clear, Urine pH 7.0, Ur Specific [place] 1.005,?Urine Protein 15 H,?Urine Glucose (UA) 100 H, Urine Ketones Negative, Urine Occult Blood Negative,?Urine Nitrite Positive H, Urine Bilirubin Negative, Urine Urobilinogen Normal,?Ur Leukocyte Esterase 100 H, Urine RBC 0 SEEN, Urine WBC 0-5 SEEN, Ur Squamous Epith Cells 0-5 SEEN, Urine Bacteria 2+, Hyaline Casts 0-5 SEEN, Urine Mucus 0 SEEN 06/12/22 11:18: POC Glucose > 500 H* Micro: Microbiology 06/12/22 08:07 ? Nasal Secretion ? SARS-CoV-2 & FLU Antigen (Rapid) - Final ABG Data ABG results: ABG ? 06/12/22 ? 08:14 Specimen Type ?BERNY VBG pH ?7.47 H VBG pO2 ?49 H VBG HCO3 ?18 L VBG Total CO2 ?19 L VBG O2 Sat (Calc) ?87 H VBG Base Excess ?-5 L POC Mix VBG pCO2 Pt Tmp ?25.5 L O2 Delivery Device ?Room Air Radiology Impression Chest X-Ray? 06/12/22 09:46 IMPRESSION: Elevation of the right hemidiaphragm with a mild degree of atelectasis at the right lung base. A right-sided Port-A-Cath is seen with the tip in the right atrium. ? Electronically Signed: Mo Curry MD at 10:49 EST , ? Peripheral blood smear: Increased anisocytosis, polychromasia, neutrophilia with left shift and toxic granulation. Platelet is decreased, no clumpings, no schistocytes. Assessment & Plan Assessment/Plan (1) Esophageal cancer, stage IV: PLAN: - Prognosis poor due to failing performance status, changing mental status and recent sepsis - Discussed with family regarding his prognosis. No further chemotherapy treatment is planned at this time. 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 PLAN: Plan -Consult hospice/palliative care pending on results of MRI scan of the brain -Continue current management for gram-negative sepsis and hyperglycemia.
[2022-06-14] MEDS: Insulin Glargine-YFGN 100 UNIT/ML Pen 10 UNIT SC ×2 (12:02→21:14)
[2022-06-14 12:30] LABS: Bedside Glucose 330 mg/dL (74-106)
[2022-06-14] MEDS: Lidocaine 1% (20 ml mdv) 20 ML Vial INFILT (13:00)
[2022-06-14] MEDS: Glucerna Shake 120 ML LIQUID PO ×2 (15:22→17:01)
[2022-06-14] MEDS: Multivitamins,Therapeutic Tablet 1 TABLET PO (15:23)
[2022-06-14] MEDS: Ferrous Sulfate 325 MG Tablet PO (15:23)
[2022-06-14] MEDS: Pantoprazole Sodium 40 MG Tablet PO (15:23)
[2022-06-14] MEDS: dexAMETHasone 4 MG Tablet 8 MG PO (15:23)
[2022-06-14] MEDS: Potassium Chloride Oral Tablet 20 MEQ 40 MEQ PO (15:24)
[2022-06-14] MEDS: Senna/Docusate Sodium 1 Tablet 2 TABLET PO (15:28)
[2022-06-14 15:34] LABS: Pathologist Review Reviewed
--- NOTE | 2022-06-14 15:59 | CON.PCM.ID_ITS ---
Assessment & Plan Assessment/Plan (1) Encephalopathy: (2) Diabetes mellitus, new onset: (3) Esophageal cancer, stage IV: (4) Bacteremia due to Klebsiella pneumoniae: PLAN: Suspect abd source. UA with 0-5 wbc. Paracentesis this afternoon. Susceptibilities now back, will cont with ceftriaxone. Will follow, thank you HPI Consult Data Date of Consult: 06/14/22 HPI Narrative Reason for Consultation: bacteremia HPI Narrative: JASON MENDEZ, is a 47 M with metastatic esophageal cancer, presented to ED 06/08 with several days hyperglycemia, fatigue, not feeling well, weakness. Given dose of levaquin due to possible uti, admitted on ceftriaxone. Found to h ave GNR bacteremia. History obtained from yovannye at bedside. No fever, no dysuria. Abd has been sore. Taken for paracentesis this afternoon and abd does feel better. Full ROS performed and neg except as noted above. [facility] Medical History Brain tumor Cancer Former smoker GI bleed Hypertension Hypothyroidism Status post gamma knife treatment Throat cancer Home Medications ferrous sulfate 325 mg (65 mg iron) tablet 325 mg PO DAILY iron supplement 07/26/21 [History Last Taken 1 Month Ago ~05/13/22] omeprazole 20 mg capsule,delayed release 40 mg PO QHS gerd 07/26/21 [History Last Taken 06/11/22] acetaminophen 500 mg tablet 500 mg PO Q8H PRN Pain 06/12/22 [History Last Taken 1 Week Ago ~06/05/22] bumetanide 1 mg tablet 1 mg PO DAILY FLUID 06/12/22 [History Last Taken 06/12/22] dexamethasone 4 mg tablet 4 mg PO TIDCM BRAIN SWELLING 06/12/22 [History Last Taken 06/12/22] docusate sodium 100 mg capsule (Colace) 100 mg PO BID PRN BOWEL 06/12/22 [History Last Taken 2 Weeks Ago ~05/29/22] enoxaparin 40 mg/0.4 mL subcutaneous syringe 40 mg subcut DAILY BLOOD CLOT 06/12/22 [History Last Taken 2 Months Ago ~04/12/22] levothyroxine 50 mcg tablet 50 mcg PO DAILY THYROID 06/12/22 [History Last Taken 06/12/22] metformin 500 mg tablet 500 mg PO DAILY dm 06/12/22 [History Last Taken 06/11/22] multivitamin 1 tab PO DAILY SUPPLEMENT 06/12/22 [History Last Taken 06/11/22] pantoprazole 40 mg tablet,delayed release 40 mg PO DAILY GERD 06/12/22 [History Last Taken Unknown] potassium chloride 20 mEq tablet,extended release(part/cryst) (Klor-Con M) 20 meq PO DAILY SUPPLEMENT 06/12/22 [History Last Taken 06/12/22] trazodone 50 mg tablet 25 mg PO DAILY INSOMNIA 06/12/22 [History Last Taken 06/11/22] Allergy/AdvReac Type Severity Reaction Status Date / Time Penicillins Allergy Mild Hives Verified 07/26/21 12:03 lisinopril Allergy Other Verified 06/12/22 14:31 Family History (Updated 06/12/22 @ 14:[address] Dilcia Mclaughlin MD) Father No problems noted. Social History Smoking Status: Former smoker Physical Exam Const alert and no apparent distress General Appearance: cooperative HEENT normocephalic and head/scalp atraumatic Eyes PERRL and EOMs intact bilaterally Neck supple and No nodes Resp normal air movement and clear to auscultation bilaterally Cardio regular rate and regular rhythm GI soft to palpation, non-tender and non-distended Extremity General Extremity: Negative for edema Skin no rashes or lesions noted Skin Narrative: R chest port no inflammation Neuro CN's II-XII intact bilaterally Lab / Micro Data Attestation: I reviewed the patient's lab results. Result Diagrams: 06/14/22 04:15 06/14/22 04:15 Labs: Laboratory Results - last 24 hr 06/13/22 16:51: POC Glucose 309 H 06/13/22 21:59: POC Glucose 341 H 06/14/22 04:15: WBC 10.0, RBC 2.50 L, Hgb 7.7 L, Hct 22.8 L, MCV 91.2, MCH 30.8, MCHC 33.8, RDW Std Deviation 79.9 H, RDW Coeff of Kami 25.2 H, Plt Count 47 L*, Immature Gran % (Auto) 1.100 H, Neut % (Auto) 91.5 H, Lymph % (Auto) 2.5 L, [place] % (Auto) 4.8, Eos % (Auto) 0.0, Baso % (Auto) 0.1, Absolute Neuts (auto) 9.2 H, Absolute Lymphs (auto) 0.25 L, Nucleated RBC % 0.9, Differential Comment SCANNED, Diff Path Review Reviewed, Polychromasia 1+, Anisocytosis 3+, Microcy tosis 1+, Macrocytosis 1+, Ovalocytes 1+ 06/14/22 04:15: Sodium 137, Potassium 4.5, Chloride 105, Carbon Dioxide 26.0, Anion Gap 6, BUN 47 H, Creatinine 1.29, Estim Creat Clear Calc 69.22, Est GFR (MDRD) Af Amer 77, Est GFR (MDRD) Non-Af 64, BUN/Creatinine Ratio 36.4 H, Glucose 364 H, Calcium 7.6 L, Total Bilirubin 5.00 H, AST 69 H, ALT 123 H, Alkaline Phosphatase 361 H, Total Protein 4.1 L, Albumin 1.5 L, Globulin 2.6, Albumin/Globulin Ratio 0.6 L 06/14/22 06:26: POC Glucose 326 H 06/14/22 09:45: Ammonia 26.0 06/14/22 09:45: PT 15.7 H, INR 1.3, Fibrinogen 215 06/14/22 09:45: Lactate Dehydrogenase 716 H 06/14/22 09:45: Immature Plt Fraction 6.5, Retic Count 2.52 H, Immature Retic Fraction 20.50 H, Retic Hgb Equivalent 44.0 H 06/14/22 12:01: POC Glucose 330 H Micro: Microbiology 06/12/22 08:18 Blood Culture (Wb) - Port Blood Culture - Final Klebsiella pneumoniae sp pneum 06/12/22 08:05 Blood Culture (Wb) - Port Blood Culture - Final Klebsiella pneumoniae sp pneum Radiology Impression Paracentesis Ultrasound 06/14/22 17:05 IMPRESSION: Ultrasound guided paracentesis. Electronically Signed: Mo Curry MD at 14:59 EST ,
[2022-06-14] MEDS: Polyethylene Glycol 3350 17 GM PACKET PO (17:01)
--- NOTE | 2022-06-14 17:05 | US_ITS ---
PROCEDURE: Ultrasound guided paracentesis. DATE OF EXAMINATION: 06/14/2022. INDICATION: Male, 47 years old. Ascites. PHYSICIAN: Mo Curry M.D. TECHNIQUE: The risks, benefits, and alternatives to the procedure were explained to the patient. The specific risks of bleeding, infection, and damage to bowel were detailed and accepted. Witnessed informed consent was obtained. The abdomen was ultrasonographically surveyed. An appropriate pocket of fluid was identified at the right lower quadrant. The skin were cleaned and prepped in the usual sterile fashion. Using ultrasound guidance, the peritoneal cavity was accessed with a 5-Citizen Of [place] paracentesis needle/catheter system. The trocar was removed. A total of 4250 ml of dillan-colored fluid were removed from the peritoneal cavity. A 100 mL sample was sent to the laboratory for analysis. The catheter was removed and a sterile dressing was applied. The procedure was well tolerated. US/Paracentesis with US IMPRESSION: Ultrasound guided paracentesis. Electronically Signed: Mo Curry MD at 14:59 EST ,
[2022-06-14 21:11] LABS: Bedside Glucose 321 mg/dL (74-106)
[2022-06-14] MEDS: traZODone 50 MG Tablet 25 MG PO (21:22)
[2022-06-14 21:40] LABS: Bedside Glucose 340 mg/dL (74-106)
[2022-06-15] VITALS (15 sets, daily range): BP systolic 107–120; BP diastolic 69–79; PULSE 62–111; RESP 18–22; TEMP 36.3–36.6; O2SAT 88–99
[2022-06-15] MEDS: 0.9% Saline Lock 10 ML Syringe IV (04:35)
[2022-06-15] MEDS: Levothyroxine 50 MCG Tablet PO (04:41)
[2022-06-15 04:55] LABS: Absolute Lymphocyte Count 0.23 X10^3/uL (0.83-4.51); Absolute Neutrophil Count 9.1 X10^3/uL (2.0-7.7); Basophil# 0.01 X10^3/uL; Basophil% 0.1 % (0-1); Hematocrit 23.6 % (40-54); Hemoglobin 7.9 g/dL (13.0-16.5); Lymphocyte # 0.23 X10^3/ul (0.83-4.51); Lymphocyte % 2.3 % (19-41); Mean Corp Hgb Conc 33.5 g/dL (32-36); Mean Corpuscular Hgb 30.6 pg (27.0-32.0); Mean Corpuscular Volume 91.5 fL (80-94); Monocyte# 0.46 X10^3/uL; Monocyte% 4.6 % (0-10); NRBC Flagged by Analyzer 0.9 % (0-5); Neutrophil # 9.14 X10^3/uL (2.7-7.7); Neutrophil % 91.3 % (47-70); POSITIVE COUNT YES; POSITIVE DIFFERENTIAL YES; POSITIVE MORPHOLOGY YES; RBC Distribution Width CV 25.8 % (11.6-14.6); RBC Distribution Width SD 81.2 fl (35.1-43.9); Red Blood Count 2.58 M/mm3 (4.6-6.2)
[2022-06-15 04:57] LABS: Differential Indicated SCAN CRITERIA MET
[2022-06-15 04:58] LABS: Platelet Count 44 K/mm3 (150-450)
[2022-06-15 05:09] LABS: ALB/GLOB Ratio 0.6 RATIO (0.9-2.4); AST(SGOT) 81 U/L (15-37); Alanine Aminotransfer ALT/SGPT 147 U/L (16-61); Albumin, Serum 1.6 g/dL (3.2-5.0); Alkaline Phosphatase 417 U/L (45-117); Anion Gap 5 (5-15); BUN 43 mg/dL (7-18); BUN/Creat Ratio 38.7 RATIO (10-20); Calcium,Total 7.6 mg/dL (8.5-10.1); Chloride 108 mmol/L (98-107); Creatinine, Serum 1.11 mg/dL (0.70-1.30); EST Glomerular Filtration Rate 76 mL/min (>60); Est Glom Filt Rate - Afr Amer 92 mL/min (>60); Estimated Creatinine Clearance 80.45 ml/min; Globulin 2.6 g/dL (2.2-4.2); Glucose 331 mg/dL (74-106); Protein, Total 4.2 g/dL (6.4-8.2); Sodium Level 139 mmol/L (136-145)
[2022-06-15 05:19] LABS: Anisocytosis 2+; Differential Comment SCANNED; Macrocytosis 1+; Microcytosis 1+; Ovalocyte RARE
[2022-06-15] MEDS: Insulin Lispro 100 UNIT/ML INSULN.PEN SC ×4 (06:38→21:33)
[2022-06-15 07:00] LABS: Bedside Glucose 333 mg/dL (74-106)
--- NOTE | 2022-06-15 07:12 | MRI_ITS ---
STUDY: MRI BRAIN WITH AND WITHOUT CONTRAST REASON FOR EXAM: Male, 47 years old. esophagus cancer, DM, bacteremia, s/p gamma knife TECHNIQUE: Standardized multiplanar fat and water weighted pulse sequences were obtained. IV Yes YES was administered for the contrast portion of the examination. COMPARISON: None. FINDINGS: Small 1.71 cm cystic/cavitary focus in the anterior aspect of the left cerebellar lobe near the cerebellar peduncle demonstrates restricted diffusion in the wall but not in the central core of this abnormality which is consistent with sequela of prior treatment or post radiation necrosis and a metastatic lesion. There are no additional lesions in the cerebellum or brainstem or in the bilateral cerebral hemispheres. Minimal enhancement is seen in the wall of the treated lesion in the anterior aspect of the left cerebellar lobe. There is no demonstrated meningeal or dural thickening or enhancement. No skull lesions are present. There is no restricted diffusion in the remaining aspects of the brain that would indicate acute infarction. Normal size of the ventricles and extra-axial spaces for the patient''s age. There are a limited number of small white matter hyperintensities, distributed throughout the deep white matter tracts of the cerebral hemispheres, consistent with mild chronic white matter ischemic changes. Normal T2* images of the brain without demonstrated susceptibility artifact. There is no demonstrated hemosiderin stain. Normal bilateral basal ganglia. Normal thalami. There is no extra-axial fluid accumulation. Normal flow voids within the major intracranial circulation suggesting patency by spin echo criteria. Normal venous enhancement. There is no enhancing intra-axial or extra-axial abnormality. Normal sella turcica, pituitary gland, infundibular stalk, optic chiasm and hypothalamus. Normal tectal plate and pineal gland. Normal midbrain, delaney and medulla. Normal cerebellum. Normal basal cisterns. Normal bilateral temporal bones. Normal bilateral internal auditory canals. No demonstrated orbital abnormality, within the constraints of a routine brain study. Normal visualized paranasal sinuses. Normal calvarium and skull base. Normal visualized soft tissue structures. Normal visualized upper cervical spine. MRI/Brain W/WO Contrast IMPRESSION: 1. Small 1.71 cm cystic/cavitary focus in the anterior aspect of the left cerebellar lobe near the cerebellar peduncle demonstrates restricted diffusion in the wall but not in the central core of this abnormality which is consistent with sequela of prior treatment or post radiation necrosis and a metastatic lesion. There are no additional lesions in the cerebellum or brainstem or in the bilateral cerebral hemispheres. Minimal enhancement is seen in the wall of the treated lesion in the anterior aspect of the left cerebellar lobe. There is no demonstrated meningeal or dural thickening or enhancement. No skull lesions are present. 2. There is no restricted diffusion in the remaining aspects of the brain that would indicate acute infarction. Electronically Signed: Primitivo Garcia MD at 13:21 EST ,
--- NOTE | 2022-06-15 09:16 | PCM.PN.HOSP ---
Subjective Subjective Follow-up on Acute HHS: Patient was seen and examined.?He has not been eating well. Patient had declined any stool softeners or antidepressant. His blood sugars remain uncontrolled. He had paracentesis done yesterday and about 4250 mils of fluid was taken out. Objective Data Objective Data Vital Signs: Vital Signs Temp Pulse Resp BP Pulse Ox O2 Del Method O2 Flow Rate 97.8 F 84 22 H 120/77 98 Nasal Cannula 2 06/15/22 08:22 06/15/22 08:22 06/15/22 08:22 06/15/22 08:22 06/15/22 08:22 06/15/22 08:24 06/15/22 08:24 Oxygen Flow Rate (L/min) 2 Oxygen Delivery Method [3] Room Air Oxygen Delivery Method [2] Room Air Oxygen Delivery Method [1 ( Room Air Initial Baseline)] Oxygen Delivery Method Nasal Cannula Weight: 124.103 kg Body Mass Index (BMI) 43.5 Intake & Output: Intake and Output for Last 24 Hours 06/13/22 06/14/22 06/15/22 23:59 23:59 23:59 Intake Total 389.06 / 389.06 390 / 510 170 / 170 Output Total 1300 / 1300 4600 / 5200 800 / 800 Balance -910.94 / -910.94 -4210 / -4690 -630 / -630 Lab / Micro Data Result Diagrams: 06/15/22 04:40 06/15/22 04:40 Labs: Laboratory Results - last 24 hr 06/14/22 04:15: Diff Path Review Reviewed 06/14/22 09:45: Ammonia 26.0 06/14/22 09:45: PT 15.7 H, INR 1.3, Fibrinogen 215 06/14/22 09:45: Lactate Dehydrogenase 716 H 06/14/22 09:45: Immature Plt Fraction 6.5, Retic Count 2.52 H, Immature Retic Fraction 20.50 H, Retic Hgb Equivalent 44.0 H 06/14/22 12:01: POC Glucose 330 H 06/14/22 17:00: POC Glucose 321 H 06/14/22 21:13: POC Glucose 340 H 06/15/22 04:40: WBC 10.0, RBC 2.58 L, Hgb 7.9 L, Hct 23.6 L, MCV 91.5, MCH 30.6, MCHC 33.5, RDW Std Deviation 81.2 H, RDW Coeff of Kami 25.8 H, Plt Count 44 L*, Immature Gran % (Auto) 1.700 H, Neut % (Auto) 91.3 H, Lymph % (Auto) 2.3 L, [place] % (Auto) 4.6, Eos % (Auto) 0.0, Baso % (Auto) 0.1, Absolute Neuts (auto) 9.1 H, Absolute Lymphs (auto) 0.23 L, Nucleated RBC % 0.9, Differential Comment SCANNED, Diff Path Review May foll, Anisocytosis 2+, Microcytosis 1+, Macrocytosis 1+, Ovalocytes RARE 06/15/22 04:40: Sodium 139, Potassium 5.0, Chloride 108 H, Carbon Dioxide 26.0, Anion Gap 5, BUN 43 H, Creatinine 1.11, Estim Creat Clear Calc 80.45, Est GFR (MDRD) Af Amer 92, Est GFR (MDRD) Non-Af 76, BUN/Creatinine Ratio 38.7 H, Glucose 331 H, Calcium 7.6 L, Total Bilirubin 6.10 H, AST 81 H, ALT 147 H, Alkaline Phosphatase 417 H, Total Protein 4.2 L, Albumin 1.6 L, Globulin 2.6, Albumin/Globulin Ratio 0.6 L 06/15/22 06:37: POC Glucose 333 H Micro: Microbiology 06/12/22 08:18 Blood Culture (Wb) - Port Blood Culture - Final Klebsiella pneumoniae sp pneum 06/12/22 08:05 Blood Culture (Wb) - Port Blood Culture - Final Klebsiella pneumoniae sp pneum 06/12/22 08:07 Nasal Secretion SARS-CoV-2 & FLU Antigen (Rapid) - Final Radiography Diagnostic Testing: Radiology Impression Paracentesis Ultrasound 06/14/22 17:05 IMPRESSION: Ultrasound guided paracentesis. Electronically Signed: Mo Curry MD at 14:59 EST , Physical Exam Narrative Physical exam: General: Alert, Oriented x3, Cooperative, appears very frail and slow, on 2L oxygen HEENT: Atraumatic Oral: Moist Mucosa Neck: Supple Lungs: Diminished to auscultation Cardiovascular: HS I+II, regular, no murmurs Abdomen: Bowel Sounds Present, Soft, Non Tender Extremities: Bilateral leg edema +1 Skin: No rashes, No breakdown Neurological: Grossly intact Psych/Mental Status: Flat affect Assessment & Plan Assessment/Plan (1) Esophageal cancer, stage IV: (2) Diabetes mellitus, new onset: (3) Hyperosmolar hyperglycemic state (HHS): (4) Hyperglycemia: PLAN: Plan 1. Acute hyperosmolar hyperglycemic state in a newly diagnosed type II DM, resolved Blood sugars remain elevated on account of high-dose oral steroids Off insulin drip, HgbA1c is 8.3, Will increase Lantus to 15 units twice daily, Continue to monitor with insulin sliding scale 2. Klebsiella pneumoniae bacteremia, unclear source UA was unremarkable on admission Ascitic fluid cultures pending Continue on IV ceftriaxone, Infectious disease following 3. Thrombocytopenia, severe, platelets remain low at 45 Will continue to trend 4. Stage IV esophageal CA with mets to the brain and liver, patient is appropriate for palliative care consult Paracentesis done yesterday; 4250mls removed Will repeat MRI of the brain to help prognosticate Follows with oncology team in the [facility] Continue on dexamethasone 5. Hypothyroidism, continue on synthroid 6. GERD, continue on PPI 7. Debility, acute on chronic, related to the above PT/OT to evaluate and treat 8. DVT PPx- SCDs Charges/Coding Visit Charges Inpatient E&M: [id number] [facility] L3
[2022-06-15] MEDS: Potassium Chloride Oral Tablet 20 MEQ 40 MEQ PO ×2 (09:52→16:25)
[2022-06-15] MEDS: dexAMETHasone 4 MG Tablet 8 MG PO ×3 (09:52→16:24)
[2022-06-15] MEDS: Ferrous Sulfate 325 MG Tablet PO (09:52)
[2022-06-15] MEDS: Insulin Glargine-YFGN 100 UNIT/ML Pen 10 UNIT SC (10:02)
[2022-06-15] MEDS: Glucerna Shake 120 ML LIQUID PO ×4 (10:02→21:29)
[2022-06-15] MEDS: Pantoprazole Sodium 40 MG Tablet PO (10:03)
--- NOTE | 2022-06-15 10:49 | PCM.PN.ID ---
Physical Exam Narrative Less verbal this AM per fiancee. No fever. Const no apparent distress Resp normal air movement and clear to auscultation bilaterally Cardio regular rate and regular rhythm GI soft to palpation and non-tender GI Narrative: mild distension Extremity General Extremity: edema Skin no rashes or lesions noted ID ID: Route of nutrition/ use of supplements: [] Nutritional Intake: [] IV Site: [] Méndez Catheter: [] Assessment & Plan Assessment/Plan (1) Encephalopathy: (2) Diabetes mellitus, new onset: (3) Esophageal cancer, stage IV: (4) Bacteremia due to Klebsiella pneumoniae: PLAN: Suspect abd source. UA with 0-5 wbc. Paracentesis done 06/14 but no fluid studies sent. Will cont with ceftriaxone. Has port in place. Consider CT head if mental status cont to worsen. Will follow
[2022-06-15 11:45] LABS: Bedside Glucose 298 mg/dL (74-106)
--- NOTE | 2022-06-15 14:36 | CASEMGMT ---
Addendum entered by Sandhya Cardoso 06/15/22 15:25: Received message that pt may have an oral option for atb. Addendum entered by Sandhya Cardoso 06/15/22 15:08: MICHAEL MICHAEL into pt room, pt at bedside. She is aware that a referral was made to [facility] and we are waiting for the palliative for now. She states she needs the IV atb set up as well and has no preference of infusion company. Provided her with a verbal in network list of Infusion companies. 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 Message to ID to confirm pt will dc with IV atb, will await answer. Original Note: Discussed pt care with hospitalist, yanni Lopes at [facility] referral made. She will review and call MICHAEL MICHAEL back. Plan to hold off on palliative care for today per hospitalist.
[2022-06-15 16:50] LABS: Bedside Glucose 298 mg/dL (74-106)
[2022-06-15] MEDS: traZODone 50 MG Tablet 25 MG PO (21:26)
[2022-06-15] MEDS: Insulin Glargine-YFGN 100 UNIT/ML Pen 15 UNIT SC (21:34)
[2022-06-15] MEDS: Polyethylene Glycol 3350 17 GM PACKET PO (21:37)
[2022-06-15 22:00] LABS: Bedside Glucose 301 mg/dL (74-106)
[2022-06-16] VITALS (10 sets, daily range): BP systolic 118–129; BP diastolic 66–78; PULSE 82–99; RESP 14–20; TEMP 35.7–36.8; O2SAT 87–98
[2022-06-16] MEDS: Levothyroxine 50 MCG Tablet PO (06:23)
--- NOTE | 2022-06-16 06:53 | NURSING ---
blood glucose level reported to primary RN
[2022-06-16] MEDS: Insulin Lispro 100 UNIT/ML INSULN.PEN SC ×4 (06:56→22:58)
[2022-06-16 07:11] LABS: Bedside Glucose 363 mg/dL (74-106)
[2022-06-16] MEDS: Pantoprazole Sodium 40 MG Tablet PO (08:05)
[2022-06-16] MEDS: dexAMETHasone 4 MG Tablet 8 MG PO ×2 (08:05→16:26)
[2022-06-16] MEDS: Potassium Chloride Oral Tablet 20 MEQ 40 MEQ PO (08:05)
[2022-06-16] MEDS: Multivitamins,Therapeutic Tablet 1 TABLET PO (08:05)
[2022-06-16] MEDS: Glucerna Shake 120 ML LIQUID PO ×2 (08:06→22:57)
[2022-06-16] MEDS: Ferrous Sulfate 325 MG Tablet PO (08:06)
[2022-06-16] MEDS: Polyethylene Glycol 3350 17 GM PACKET PO ×2 (08:13→23:00)
[2022-06-16 09:48] LABS: Pathologist Review Reviewed
[2022-06-16] MEDS: Insulin Glargine-YFGN 100 UNIT/ML Pen 15 UNIT SC ×2 (09:53→22:59)
--- NOTE | 2022-06-16 11:24 | US_ITS ---
STUDY: ABDOMINAL ULTRASOUND - RIGHT UPPER QUADRANT REASON FOR VISIT: Male, 47 years old Elevated LFTs . No metastatic esophageal carcinoma. TECHNIQUE: Ultrasound evaluation of the right upper quadrant was performed with real-time and static dewitt-scale imaging. TECHNICAL QUALITY: Limited. Examination limited due to the patient?s condition. COMPARISON: None. FINDINGS: Small amount of ascites in the upper abdomen. Liver: The liver measures 12.5 cm. There is increased echogenicity consistent with fatty infiltration. The bile ducts are within normal limits. There is hepatic color flow. The direction of portal flow is hepatopetal. There is no demonstrated mass lesion. Gallbladder: There is a contracted gallbladder. Findings suggestive of sludge in the gallbladder lumen. Limited evaluation for possible small gallstones. Gallbladder wall measures 4 mm. Common Bile Duct (C.B.D.): There is limited visualization of the common bile duct due to the overlying bowel gas.. Pancreas: There is nonvisualization of the pancreas due to overlying bowel gas. Right Kidney: There is atrophy of the right kidney. The right kidney measures 8.5 cm x 4.3 cm x 4.6 cm. There is thinning of the renal cortex. The right cortex measures 0.9 cm. There is no demonstrated renal mass or cyst. There is no right hydronephrosis. US/Liver IMPRESSION: Limited evaluation due to the patient''s condition and gas. Contracted gallbladder limiting the visualization of stones. Mild right renal atrophy. Electronically Signed: Mo Curry MD at 14:48 EST ,
--- NOTE | 2022-06-16 12:00 | CASEMGMT ---
Addendum entered by Cyndee Pelletier 06/16/22 15:24: Correction: Pt's sister, September, @ bedside. She (not Petra) was notified [facility] able to accept and SOC slated for Sunday. She denies having other discharge planning needs or concerns. No return call from [facility] front office medical assistant/emergency coordinator yet. MICHAEL MICHAEL placed call to them again at this time. Spoke w/Petr. He states he will re-submit the request. He states he will have the delivery nickie contact Petra for home set-up. He states if there are any issues, they will call PCU and speak with the charge nurse. He was provided w/PCU's phone #. Addendum entered by Cyndee Pelletier 06/16/22 15:18: Call received from [facility]. They are unable to accept pt. [facility] and also unable to accept. No response from all the other [facility]. Message received from [facility] via [employer]. They are able to accept pt w/SOC Sunday06/19/22. Petra made aware. Addendum entered by Cyndee Pelletier 06/16/22 14:43: Discharge instructions were sent via [employer] w/referral. Addendum entered by Cyndee Pelletier 06/16/22 14:07: Via message thru [employer], [facility] unable to accept pt and [facility] has not responded. Petra had stated if neither of them able to accept pt, she had no other preference. Referral for HHC sent to 8 other [facility] agencies via [employer] at this time. Addendum entered by Cyndee Pelletier 06/16/22 13:55: Call placed to [facility] on-call # and they were made aware of new referral for Home o2. Addendum entered by Cyndee Pelletier 06/16/22 13:42: Pt qualifies for Home O2 @ 2l/m continuous. Script obtained from Dr Mclaughlin and faxed to [facility] along w/home oxygen testing results. Portable O2 tank to be taken from [facility] Supply for pt to go home on. MICHAEL Ballesteros, aware and has taken one to pt's room. MICHAEL MICHAEL spoke w/Petra and informed of home O2 set up process. She states pt does have a pulse ox. Script for w/c w/elevating leg rests given to Petra at this time. Addendum entered by Cyndee Pelletier 06/16/22 12:56: Call received from Carla @ [facility]. She states they are not able to accept pt d/t SN unable to see pt until next Sun/. She is aware sig jay is a BLEACH RANGE OPERATOR and willing/able to provide any nursing care to pt until they could have seen pt. MICHAEL MICHAEL to room. Petra made aware of above. She was provided w/list of [facility] agencies from [facility]. She chooses [facility] as next choice and then [facility]. Referral sent to both places via [facility] at this time. Original Note: MICHAEL MICHAEL NOTE: Per Dr Mclaughlin, pt is being discharged today on PO atb's and she states plan is to f/u as OP re:possible PEG placement. Per Carla [facility], they do not have staff for SN to see pt until next week either Sun or , but therapy could open pt on Sunday. MICHAEL MICHAEL to room to talk w/sig jay, Petra, who is at bedside. Petra made aware and states is okay w/this, as she is a BLEACH RANGE OPERATOR and will be managing pt's medications. Petra states they have a walker and W/C that pt can use, that was a prior family member's that , but pt is a little snug in the W/C and she would like to get a larger one for pt. She also inquired about siderails to place on pt's Tempurpedic bed. She was made aware [facility] and [employer] are closed for the day,as is most DME companies, but MICHAEL MICHAEL is aware that [facility] is open, but they do not deliver to [facility]. She states, if she could get a script for a W/C, someone from could go to [facility] today and pick one up, if they have one. Otherwise, she states pt could use the one they currently have until they can get one later. MICHAEL MICHAEL did call [facility], and she states they do have siderails, but they do not have a 20 w/c, which is what she would recommend for pt's height/weight, but they could order it today and it would take about 5 days to come in. Petra made aware of both siderails being available and re: w/c. Petra states would like referral placed to [facility] today prior to pt being discharged. Call to [facility] and spoke w/Leandra. She was made aware of above. She states will verify with Carla, that they can accept pt and will call this RN CM back. Per Favian, Petra is inquiring about pt being sent home w/oxygen to use @ HS. Petra made aware insurance will not cover Oxygen @ HS unless overnight pulse ox is completed. She was made Home O2 testing can be completed w/activity to see if he would qualify. She denies having preference of DME co for O2. She was made aware [facility] is affiliated w/[facility] and she chooses [employer]. Petra was provided w/[facility] agencies for aides. She denies having further discharge planning needs at this time. Barrett ALMANZARN RN CM
[2022-06-16 12:10] LABS: Bedside Glucose 368 mg/dL (74-106)
--- NOTE | 2022-06-16 12:23 | CASEMGMT ---
MICHAEL MICHAEL: Call received from hospital insurance representative Kristine gomez to assist with DC planning needs. Kristine can be reached at [phone]. Kaleb Chu RN CM
--- NOTE | 2022-06-16 12:32 | DCINST_ITS ---
Discharge Instructions Diet Discharge Diet: No restrictions Activity Discharge Activity: Return to Normal Activity Follow Up Care Test Results: Test results from this visit will be discussed in further detail at your follow- up appointment, if applicable. Discharge Plan Admission Admit Date/Time: 06/12/22 11:53 Primary Reason for Your Visit: HHS/Elevated LFTs Attending Provider: Dilcia Mclaughlin Primary Care Provider: Cassy Aranda NP Consulting Providers: Mars Guan ; Sukhdeep Briggs ; Ghazala Iverson ; Carlton Andres ; Phil Andrews ; Ignacio Egan ; Friend,Yo Instructions Patient Instructions: PHANI RN Paracentesis Dc Additional Instructions / Restrictions: Continue to use MiraLAX and docusate for constipation Follow-up with Dr. Egan within a week for repeat blood work Complete your antibiotics Discharge Orders/Prescriptions Prescriptions: New ciprofloxacin HCl [Cipro] 500 mg tablet 500 mg PO BID Qty: 10 0RF No Action ferrous sulfate 325 mg (65 mg iron) Tablet 325 mg PO DAILY omeprazole 20 mg capsule,delayed release(DR/EC) 40 mg PO QHS Label Comments: TAKE 2 CAPSULES BY MOUTH EVERY DAY metformin 500 mg tablet 500 mg PO DAILY trazodone 50 mg tablet 25 mg PO DAILY acetaminophen 500 mg Tablet 500 mg PO Q8H PRN (Reason: Pain) potassium chloride [Klor-Con M20] 20 mEq tablet,ER particles/crystals 20 meq PO DAILY Label Comments: TAKE 1 TABLET BY MOUTH EVERY DAY levothyroxine 50 mcg tablet 50 mcg PO DAILY Label Comments: TAKE 1 TABLET BY MOUTH EVERY DAY pantoprazole 40 mg tablet,delayed release (DR/EC) 40 mg PO DAILY dexamethasone 4 mg tablet 4 mg PO TIDCM Label Comments: TAKE 1 TABLET BY MOUTH TWICE A DAY WITH MEALS bumetanide 1 mg tablet 1 mg PO DAILY Label Comments: TAKE 1 TABLET BY MOUTH EVERY DAY enoxaparin 40 mg/0.4 mL Syringe 40 mg SUBCUT DAILY multivitamin Tablet 1 tab PO DAILY docusate sodium [Colace] 100 mg Capsule 100 mg PO BID PRN (Reason: BOWEL) Referrals / Follow Up: Cassy Aranda NP, ASSISTANT THERAPY AIDE-C [Primary Care Provider] - 06/20/22 3:40 pm Disposition Disposition (needs filled in before D/C Order can be placed): Home Health Service
[2022-06-16 12:41] LABS: Absolute Neutrophil Count 15.1 X10^3/uL (2.0-7.7); Basophil# 0.03 X10^3/uL; Basophil% 0.2 % (0-1); Hematocrit 25.7 % (40-54); Hemoglobin 8.8 g/dL (13.0-16.5); Lymphocyte % 1.8 % (19-41); Mean Corp Hgb Conc 34.2 g/dL (32-36); Mean Corpuscular Hgb 31.7 pg (27.0-32.0); Mean Corpuscular Volume 92.4 fL (80-94); Monocyte# 0.58 X10^3/uL; Monocyte% 3.6 % (0-10); NRBC Flagged by Analyzer 1.5 % (0-5); Neutrophil # 15.09 X10^3/uL (2.7-7.7); Neutrophil % 92.7 % (47-70); POSITIVE COUNT YES; POSITIVE DIFFERENTIAL YES; POSITIVE MORPHOLOGY YES; Platelet Count 63 K/mm3 (150-450); RBC Distribution Width CV 26.5 % (11.6-14.6); RBC Distribution Width SD 82.9 fl (35.1-43.9); Red Blood Count 2.78 M/mm3 (4.6-6.2); White Blood Count 16.3 K/mm3 (4.4-11.0)
[2022-06-16 12:47] LABS: Differential Indicated SCAN CRITERIA MET
[2022-06-16 12:58] LABS: Ammonia < 10.0 umol/L (11-32)
[2022-06-16 13:25] LABS: ALB/GLOB Ratio 0.6 RATIO (0.9-2.4); AST(SGOT) 106 U/L (15-37); Alanine Aminotransfer ALT/SGPT 194 U/L (16-61); Albumin, Serum 1.7 g/dL (3.2-5.0); Alkaline Phosphatase 515 U/L (45-117); Anion Gap 5 (5-15); BUN 44 mg/dL (7-18); BUN/Creat Ratio 33.6 RATIO (10-20); Bilirubin, Direct 6.88 mg/dL (0.00-0.30); Calcium,Total 8.3 mg/dL (8.5-10.1); Chloride 106 mmol/L (98-107); Creatinine, Serum 1.31 mg/dL (0.70-1.30); EST Glomerular Filtration Rate 63 mL/min (>60); Est Glom Filt Rate - Afr Amer 76 mL/min (>60); Estimated Creatinine Clearance 68.17 ml/min; Globulin 2.9 g/dL (2.2-4.2); Glucose 380 mg/dL (74-106); Potassium 6.2 mmol/L (3.5-5.1); Protein, Total 4.6 g/dL (6.4-8.2); Sodium Level 135 mmol/L (136-145)
[2022-06-16 13:40] LABS: Anisocytosis 2+; Crenated RBC 2+
[2022-06-16 13:41] LABS: Ovalocyte 2+; Schistocytes 1+
--- NOTE | 2022-06-16 13:41 | CASEMGMT ---
MICHAEL CM: Referral faxed to [facility] per family request. Ramona Chu RN CM
[2022-06-16 13:42] LABS: Other WBC Type 16.3 %; Platelet Estimate MKD DEC (ADEQ); Polychromasia 1+
--- NOTE | 2022-06-16 13:43 | PCM.PN.ID ---
Physical Exam Narrative More interactive, feeling better, no abd pain Const no apparent distress Resp normal air movement and clear to auscultation bilaterally Cardio regular rate and regular rhythm GI soft to palpation, non-tender and non-distended Skin no rashes or lesions noted ID ID: Route of nutrition/ use of supplements: [] Nutritional Intake: [] IV Site: [] Méndez Catheter: [] Assessment & Plan Assessment/Plan (1) Encephalopathy: (2) Diabetes mellitus, new onset: (3) Esophageal cancer, stage IV: (4) Bacteremia due to Klebsiella pneumoniae: PLAN: Suspect abd source. UA with 0-5 wbc. Paracentesis done 06/14 but no fluid studies sent. On ceftriaxone. Has port in place. Ok for home with 5 days po angie, wrote rx, d/w primary team Will follow as needed
[2022-06-16 14:21] LABS: Potassium 6.2 mmol/L (3.5-5.1)
--- NOTE | 2022-06-16 15:37 | DS.PCM_ITS ---
Providers Date of Admission: 06/12/22 Date of Discharge: 06/16/22 Primary Care Physician: CELESTE Flores Consultations 06/14/22 07:13 Consult: Oncology/Hematology Routine Consulting Provider: DORCAS Hem/Onc Rosalee Reason for Consult: Thrombocytopenia EMERGENT Consult: No Notified: Yes Date Notified: 06/14/22 Time Notified: 10:20 Method of Notification: Text 06/14/22 08:59 Consult: Infectious Disease Routine Consulting Provider: Mars Guan Reason for Consult: Bacteremia EMERGENT Consult: No MD Notified: Yes Date Notified: 06/14/22 Time Notified: 10:16 Method of Notification: Answering Service 06/16/22 12:38 Consult: Gastroenterology Routine Consulting Provider: Yo Wood Reason for Consult: elevated lft EMERGENT Consult: No MD Notified: Yes Date Notified: 06/16/22 Time Notified: 12:38 Method of Notification: Verbal Reason For Visit: [facility] Diagnosis Discharge Diagnosis (1) Encephalopathy: Status: Acute Code(s): G93.40 - Encephalopathy, unspecified (2) Diabetes mellitus, new onset: Status: Inactive Code(s): E11.9 - Type 2 diabetes mellitus without complications (3) Esophageal cancer, stage IV: Status: Acute Code(s): C15.9 - Malignant neoplasm of esophagus, unspecified (4) Bacteremia due to Klebsiella pneumoniae: Status: Acute Code(s): R78.81 - Bacteremia; B96.1 - Klebsiella pneumoniae [K. pneumoniae] as the cause of diseases classified elsewhere Plan 1. Acute hyperosmolar hyperglycemic state in a newly diagnosed type II DM, resolved 2. Klebsiella pneumoniae bacteremia, unclear source 3. Thrombocytopenia, severe 4. Stage IV esophageal CA with mets to the brain and liver 5. Hypothyroidism 6. GERD 7. Debility, acute on chronic, related to the above Medications at Discharge Home Medications ferrous sulfate 325 mg (65 mg iron) tablet 325 mg PO DAILY iron supplement 07/26 omeprazole 20 mg capsule,delayed release 40 mg PO QHS gerd 07/26/21 acetaminophen 500 mg tablet 500 mg PO Q8H PRN Pain 06/12/22 bumetanide 1 mg tablet 1 mg PO DAILY FLUID 06/12/22 docusate sodium 100 mg capsule (Colace) 100 mg PO BID PRN BOWEL 06/12/22 enoxaparin 40 mg/0.4 mL subcutaneous syringe 40 mg subcut DAILY BLOOD CLOT 06/12/22 levothyroxine 50 mcg tablet 50 mcg PO DAILY THYROID 06/12/22 multivitamin 1 tab PO DAILY SUPPLEMENT 06/12/22 pantoprazole 40 mg tablet,delayed release 40 mg PO DAILY GERD 06/12/22 trazodone 50 mg tablet 25 mg PO DAILY INSOMNIA 06/12/22 ciprofloxacin HCl 500 mg tablet (Cipro) 500 mg PO BID #10 tabs 06/16/22 dexamethasone 4 mg tablet 8 mg PO TIDCM #0 tabs 06/16/22 insulin glargine-yfgn 100 unit/mL (3 mL) subcutaneous pen 15 unit (0.15 mL) subcut BID 30 days #9 mL 06/16/22 lactulose 20 gram/30 mL oral solution 20 g (30 mL) PO TID 14 days #1,260 mL 06/16/22 pen needle, diabetic 30 gauge x 5/16 (Pen Needle) #100 ea 06/16/22 Hospital Course Procedures Paracentesis Summary of Care Provided Minutes Spent on Discharge: 45 Hospital Course: 41-year-old male with past medical history of esophageal CA with mets to the brain and liver, status post multiple gamma knife procedures, on chronic high- dose steroid, recently diagnosed with type II DM comes in with complaints of generalized weakness and elevated blood sugar. Patient was found to be in HHS in the ED. Was admitted to the ICU and managed transiently on insulin drip with improvement in his sugars. He was transitioned to a long-acting insulin. Patient was noted to have thrombocytopenia. Oncology consulted. [place] to be related to his gener al condition. Blood cultures came back positive for Klebsiella pneumonia. Infectious disease were consulted. Patient was continued on IV ceftriaxone and discharged on oral Cipro. During this hospital stay, patient had evidence of progressive jaundice and lethargy. He refused to eat. He had paracentesis done and more than 4.2 L of fluid were removed. Repeat MRI of the brain was done and compared to his previous MRI in the [facility] system and there was evidence of improvement in his brain swelling. Patient however had worsening liver function, liver ultrasound showed hepatomegaly suggestive of fatty liver. I discussed extensively with the . She was open to hospice if his MRI of the brain had shown worsening edema. She is aware that with worsening liver function, patient will likely be hospice appropriate. Patient had evidence of hyperkalemia noted on the day of discharge, initially felt to be secondary to hemolysis by repeat potassium was still elevated. He had 30mg x 1 Kayexalate given. Repeat potassium was still elevated. He received another dose of Kayexa late 15 mg. Patient was given a prescription for wheelchair, glucometer, insulin, insulin pen. His stated that she wanted badly to send him home for [place]. She knows to follow-up with Dr. Egan and have repeat blood work done to follow-up on potassium and liver function test Physical Exam Narrative Physical exam: General: Alert, Oriented x3, Cooperative, appears very frail and slow, jaundiced, on 2L oxygen HEENT: Atraumatic Oral: Moist Mucosa Neck: Supple Lungs: Diminished to auscultation Cardiovascular: HS I+II, regular, no murmurs Abdomen: Bowel Sounds Present, Soft, Non Tender Extremities: Bilateral leg edema +1 Skin: No rashes, No breakdown Neurological: Grossly intact Psych/Mental Status: Flat affect Weight / BMI Weight Weight: 125.6 kg Body Mass Index (BMI) 43.5 ABG / Lab / Microbiology Data Result Diagrams: 06/16/22 12:10 06/16/22 18:24 Laboratory: Laboratory Results - last 24 hr 06/15/22 04:40: Diff Path Review Reviewed 06/15/22 16:21: POC Glucose 298 H 06/15/22 21:32: POC Glucose 301 H 06/16/22 06:49: POC Glucose 363 H 06/16/22 11:44: POC Glucose 368 H 06/16/22 12:10: WBC 16.3 H, RBC 2.78 L, Hgb 8.8 L, Hct 25.7 L, MCV 92.4, MCH 31.7, MCHC 34.2, RDW Std Deviation 82.9 H, RDW Coeff of Kami 26.5 H, Plt Count 63 L, Immature Gran % (Auto) 1.700 H, Neut % (Auto) 92.7 H, Lymph % (Auto) 1.8 L, [place] % (Auto) 3.6, Eos % (Auto) 0.0, Baso % (Auto) 0.2, Absolute Neuts (auto) 15.1 H, Absolute Lymphs (auto) 0.30 L, Other Cells % 16.3, Nucleated RBC % 1.5, Platelet Estimate MKD DEC, Polychromasia 1+, Anisocytosis 2+, Ovalocytes 2+, Crenated Cell 2+, Schistocytes 1+ 06/16/22 12:10: Sodium 135 L, Potassium 6.2 H*, Chloride 106, Carbon Dioxide 24.0, Anion Gap 5, BUN 44 H, Creatinine 1.31 H, Estim Creat Clear Calc 68.17, Est GFR (MDRD) Af Amer 76, Est GFR (MDRD) Non-Af 63, BUN/Creatinine Ratio 33.6 H , Glucose 380 H, Calcium 8.3 L, Total Bilirubin 8.50 H, Direct Bilirubin 6.88 H, AST 106 H, ALT 194 H, Alkaline Phosphatase 515 H, Total Protein 4.6 L, Albumin 1.7 L, Globulin 2.9, Albumin/Globulin Ratio 0.6 L 06/16/22 12:10: Ammonia < 10.0 L 06/16/22 13:53: Potassium 6.2 H* Microbiology: Microbiology 06/15/22 Unknown Fluid - Ascites Gram Stain - Final 06/15/22 Unknown Fluid - Ascites Body Fluid Culture - Preliminary 06/12/22 08:18 Blood Culture (Wb) - Port Blood Culture - Final Klebsiella pneumoniae sp pneum 06/12/22 08:05 Blood Culture (Wb) - Port Blood Culture - Final Klebsiella pneumoniae sp pneum 06/12/22 08:07 Nasal Secretion SARS-CoV-2 & FLU Antigen (Rapid) - Final Radiography Diagnostic Testing: Radiology Impression Brain MRI 06/15/22 07:12 IMPRESSION: 1. Small 1.71 cm cystic/cavitary focus in the anterior aspect of the left cerebellar lobe near the cerebellar peduncle demonstrates restricted diffusion in the wall but not in the central core of this abnormality which is consistent with sequela of prior treatment or post radiation necrosis and a metastatic lesion. There are no additional lesions in the cerebellum or brainstem or in the bilateral cerebral hemispheres. Minimal enhancement is seen in the wall of the treated lesion in the anterior aspect of the left cerebellar lobe. There is no demonstrated meningeal or dural thickening or enhancement. No skull lesions are present. 2. There is no restricted diffusion in the remaining aspects of the brain that would indicate acute infarction. Electronically Signed: Primitivo Garcia MD at 13:21 EST , ADDENDUM: 06/16/22 0834 IMPRESSION: * Overall much improved and diminished size and associated edema of the metastatic lesion in the anterior aspect of the right cerebellar lobe/cerebellar peduncle. * Mild residual enhancement in the wall of the lesion including a small nodular focus as described above. Electronically Signed: Primitivo Garcia MD at 8:27 EST Reading Location ID and State: [address] [place] [address] , Service support , Liver Ultrasound 06/16/22 11:24 IMPRESSION: Limited evaluation due to the patient''s condition and gas. Contracted gallbladder limiting the visualization of stones. Mild right renal atrophy. Electronically Signed: Mo Curry MD at 14:48 EST Reading Location ID and State: [facility] / [place] , Service support , D/C Instructions Discharge Diet: No restrictions Meaningful Use Info Meaningful Use Diagnoses (Choose all that apply): None applicable Discharge Plan Admission Admit Date/Time: 06/12/22 11:53 Primary Reason for Your Visit: HHS/Elevated LFTs Attending Provider: Akila Sullivan Primary Care Provider: Cassy Aranda NP Consulting Providers: Mars Guan ; Sukhdeep Briggs ; Ghazala Iverson ; Carlton Andres ; Phil Andrews ; Ignacio Egan ; Dilcia Mclaughlin Instructions Patient Instructions: PHANI RN Paracentesis Dc Additional Instructions / Restrictions: Continue to use MiraLAX and docusate for constipation Follow-up with Dr. Egan within a week for repeat blood work Complete your antibiotics Discharge Orders/Prescriptions Prescriptions: New ciprofloxacin HCl [Cipro] 500 mg tablet 500 mg PO BID Qty: 10 0RF dexamethasone 4 mg Tablet 8 mg PO TIDCM Qty: 0 0RF insulin glargine-yfgn 100 unit/mL (3 mL) Insulin Pen 15 unit subcut BID 30 Days Qty: 9 0RF (DME) pen needle, diabetic [Pen Needle] 30 gauge x 5/16 needle See Rx Instructions .Route Qty: 100 0RF Rx Instructions: As directed lactulose 20 gram/30 mL solution 20 g PO TID 14 Days Qty: 1260 0RF Continued ferrous sulfate 325 mg (65 mg iron) Tablet 325 mg PO DAILY omeprazole 20 mg capsule,delayed release(DR/EC) 40 mg PO QHS Label Comments: TAKE 2 CAPSULES BY MOUTH EVERY DAY trazodone 50 mg tablet 25 mg PO DAILY acetaminophen 500 mg Tablet 500 mg PO Q8H PRN (Reason: Pain) levothyroxine 50 mcg tablet 50 mcg PO DAILY Label Comments: TAKE 1 TABLET BY MOUTH EVERY DAY pantoprazole 40 mg tablet,delayed release (DR/EC) 40 mg PO DAILY bumetanide 1 mg tablet 1 mg PO DAILY Label Comments: TAKE 1 TABLET BY MOUTH EVERY DAY enoxaparin 40 mg/0.4 mL Syringe 40 mg SUBCUT DAILY multivitamin Tablet 1 tab PO DAILY docusate sodium [Colace] 100 mg Capsule 100 mg PO BID PRN (Reason: BOWEL) Discontinued metformin 500 mg tablet 500 mg PO DAILY potassium chloride [Klor-Con M20] 20 mEq tablet,ER particles/crystals 20 meq PO DAILY Label Comments: TAKE 1 TABLET BY MOUTH EVERY DAY dexamethasone 4 mg tablet 4 mg PO TIDCM Label Comments: TAKE 1 TABLET BY MOUTH TWICE A DAY WITH MEALS Other Ambulatory Orders: Comprehensive Metabolic Profil (Routine) Timeframe: 3 Days Facility: [facility] - Location: Laboratory Ordered By: Dr. Dilcia Mclaughlin Glucometer (Routine) Timeframe: 1 Day Location: Determined by Patient Ordered By: Dr. Dilcia Mclaughlin Referrals / Follow Up: Cassy Aranda NP, VEHICLE INSPECTOR-C [Primary Care Provider] - 06/20/22 3:40 pm Disposition Discharge Orders: Discharge Patient (Routine); Ordered 06/16/22 Ordered By: Dr. Dilcia Mclaughlin Charges/Coding Visit Charges Inpatient E&M: 53975 Subs Hosp L2
[2022-06-16] MEDS: Sodium Polystyrene Sulfonate 15 GM/60 ML UDC 30 GM PO (16:26)
[2022-06-16 16:55] LABS: Bedside Glucose 302 mg/dL (74-106)
[2022-06-16 18:57] LABS: Potassium 6.1 mmol/L (3.5-5.1)
[2022-06-16] MEDS: Sodium Polystyrene Sulfonate 15 GM/60 ML UDC PO (20:10)
--- NOTE | 2022-06-16 21:12 | PCM.PN.BLA ---
Progress Note Plan was to discharge patient home on 06/16/2022 and discharge order was appropriately ordered by nathalia LYNCH. However nurse reports that family came to pick patient late. And patient is too drowsy to go home at this time so family is requesting that patient be discharged home tomorrow. Patient with no IV access now. Will order ciprofloxacin that was ordered for discharge.
--- NOTE | 2022-06-16 21:30 | NURSING ---
pt's family was unable to get pt to be alert enough to get up to wheel chair for discharge tonight. Dr Mercado was notified states ok to hold discharge for tonight
[2022-06-16] MEDS: Ciprofloxacin 500 MG Tablet PO (23:06)
[2022-06-16 23:26] LABS: Bedside Glucose 290 mg/dL (74-106)
[2022-06-17] VITALS (8 sets, daily range): BP systolic 126–135; BP diastolic 47–76; PULSE 94–113; RESP 16–18; TEMP 36.1–36.7; O2SAT 94–97
[2022-06-17] MEDS: Levothyroxine 50 MCG Tablet PO (06:36)
[2022-06-17] MEDS: Insulin Lispro 100 UNIT/ML INSULN.PEN SC (06:45)
[2022-06-17 07:15] LABS: Bedside Glucose 309 mg/dL (74-106)
--- NOTE | 2022-06-17 07:41 | PN.HOSP_ITS ---
Subjective Subjective Late entry note: Patient was discharged home but apparently did not leave because his family could not obtain a wheelchair to comfortably send him home Follow-up on acute HHS/Hyperkalemia/Klebsiella pneumoniae bacteremia: Patient was seen and examined. No acute events overnight. Discussed extensively with the at the bedside. Patient is more noncommunicative. He also looks more jaundiced. Discussed MRI results and elevated liver function test with the . Discussed options at discharge including hospice. His prefers home health for a while, she will follow-up with Dr. Egan and if at that point patient is worse, she wants open for transition for hospice however once the patient discharged home for [place]. Objective Data Objective Data Vital Signs: Vital Signs Temp Pulse Resp BP Pulse Ox O2 Del Method O2 Flow Rate 98.1 F 98 16 128/75 H 95 Nasal Cannula 2 06/17/22 04:06 06/17/22 07:33 06/17/22 04:06 06/17/22 04:06 06/17/22 07:33 06/17/22 07:33 06/17/22 07:33 Oxygen Flow Rate (L/min) [ 2 AMBULATING with Oxygen #1] Oxygen Flow Rate (L/min) [At 2 REST with Oxygen] Oxygen Flow Rate (L/min) 2 Oxygen Delivery Method [3] Room Air Oxygen Delivery Method [2] Room Air Oxygen Delivery Method [1 ( Room Air Initial Baseline)] Oxygen Delivery Method Nasal Cannula Weight: 125.9 kg Body Mass Index (BMI) 43.5 Intake & Output: Intake and Output for Last 24 Hours 06/15/22 06/16/22 06/17/22 23:59 23:59 23:59 Intake Total 220 / 220 540 / 540 300 / 300 Output Total 1200 / 1200 850 / 850 Balance -980 / -980 -310 / -310 300 / 300 Lab / Micro Data Result Diagrams: 06/16/22 12:10 06/16/22 18:24 Labs: Laboratory Results - last 24 hr 06/15/22 04:40: Diff Path Review Reviewed 06/16/22 11:44: POC Glucose 368 H 06/16/22 12:10: WBC 16.3 H, RBC 2.78 L, Hgb 8.8 L, Hct 25.7 L, MCV 92.4, MCH 31.7, MCHC 34.2, RDW Std Deviation 82.9 H, RDW Coeff of Kami 26.5 H, Plt Count 63 L, Immature Gran % (Auto) 1.700 H, Neut % (Auto) 92.7 H, Lymph % (Auto) 1.8 L, [place] % (Auto) 3.6, Eos % (Auto) 0.0, Baso % (Auto) 0.2, Absolute Neuts (auto) 15.1 H, Absolute Lymphs (auto) 0.30 L, Other Cells % 16.3, Nucleated RBC % 1.5, Platelet Estimate MKD DEC, Polychromasia 1+, Anisocytosis 2+, Ovalocytes 2+, Crenated Cell 2+, Schistocytes 1+ 06/16/22 12:10: Sodium 135 L, Potassium 6.2 H*, Chloride 106, Carbon Dioxide 24.0, Anion Gap 5, BUN 44 H, Creatinine 1.31 H, Estim Creat Clear Calc 68.17, Est GFR (MDRD) Af Amer 76, Est GFR (MDRD) Non-Af 63, BUN/Creatinine Ratio 33.6 H , Glucose 380 H, Calcium 8.3 L, Total Bilirubin 8.50 H, Direct Bilirubin 6.88 H, AST 106 H, ALT 194 H, Alkaline Phosphatase 515 H, Total Protein 4.6 L, Albumin 1.7 L, Globulin 2.9, Albumin/Globulin Ratio 0.6 L 06/16/22 12:10: Ammonia < 10.0 L 06/16/22 13:53: Potassium 6.2 H* 06/16/22 16:24: POC Glucose 302 H 06/16/22 18:24: Potassium 6.1 H* 06/16/22 22:54: POC Glucose 290 H 06/17/22 06:42: POC Glucose 309 H Micro: Microbiology 06/15/22 Unknown Fluid - Ascites Gram Stain - Final 06/15/22 Unknown Fluid - Ascites Body Fluid Culture - Preliminary 06/12/22 08:18 Blood Culture (Wb) - Port Blood Culture - Final Klebsiella pneumoniae sp pneum 06/12/22 08:05 Blood Culture (Wb) - Port Blood Culture - Final Klebsiella pneumoniae sp pneum 06/12/22 08:07 Nasal Secretion SARS-CoV-2 & FLU Antigen (Rapid) - Final Radiography Diagnostic Testing: Radiology Impression Brain MRI 06/15/22 07:12 IMPRESSION: 1. Small 1.71 cm cystic/cavitary focus in the anterior aspect of the left cerebellar lobe near the cerebellar peduncle demonstrates restricted diffusion in the wall but not in the central core of this abnormality which is consistent with sequela of prior treatment or post radiation necrosis and a metastatic lesion. There are no additional lesions in the cerebellum or brainstem or in the bilateral cerebral hemispheres. Minimal enhancement is seen in the wall of the treated lesion in the anterior aspect of the left cerebellar lobe. There is no demonstrated meningeal or dural thickening or enhancement. No skull lesions are present. 2. There is no restricted diffusion in the remaining aspects of the brain that would indicate acute infarction. Electronically Signed: Primitivo Garcia MD at 13:21 EST , ADDENDUM: 06/16/22 0834 IMPRESSION: * Overall much improved and diminished size and associated edema of the metastatic lesion in the anterior aspect of the right cerebellar lobe/cerebellar peduncle. * Mild residual enhancement in the wall of the lesion including a small nodular focus as described above. Electronically Signed: Primitivo Garcia MD at 8:27 EST , Liver Ultrasound 06/16/22 11:24 IMPRESSION: Limited evaluation due to the patient''s condition and gas. Contracted gallbladder limiting the visualization of stones. Mild right renal atrophy. Electronically Signed: Mo Curry MD at 14:48 EST , Physical Exam Narrative Physical exam: General: Alert, Oriented x3, Cooperative, appears very frail and slow, jaundiced, on 2L oxygen HEENT: Atraumatic Oral: Moist Mucosa Neck: Supple Lungs: Diminished to auscultation Cardiovascular: HS I+II, regular, no murmurs Abdomen: Bowel Sounds Present, Soft, Non Tender Extremities: Bilateral leg edema +1 Skin: No rashes, No breakdown Neurological: Grossly intact Psych/Mental Status: Flat affect Assessment & Plan Assessment/Plan (1) Encephalopathy: (2) Diabetes mellitus, new onset: (3) Esophageal cancer, stage IV: (4) Bacteremia due to Klebsiella pneumoniae: PLAN: Plan 1. Acute hyperosmolar hyperglycemic state in a newly diagnosed type II DM, resolved Patient has been transitioned to long-acting insulin with blood glucose checks 2. Klebsiella pneumoniae bacteremia, unclear source, managed on IV ceftriaxone, transition to oral Cipro at discharge 3. Hyperkalemia, status post Kayexalate, repeat in a.m. 4.Thrombocytopenia, severe, likely related to bacteremia, hematology consulted 5. Stage IV esophageal CA with mets to the brain and liver Repeat MRI of the brain appears slightly improved 6. Worsening liver function pseudocirrhosis/metastatic liver disease Patient with underlying mets to the liver, ultrasound of the liver shows fatty liver disease Will trend labs Family to discuss this further with the oncology team Prescribed lactulose, encourage use of MiraLAX 7. Hypothyroidism, continue on Synthroid 8. GERD, continue on PPI 9. Debility, acute on chronic, related to the above, declined discharge to [facility] facility. Patient [facility] be [facility] by [facility] 10. DVT PPx- SCDs Charges/Coding Visit Charges Inpatient E&M: 53792 Subs Hosp L3
[2022-06-17 09:50] LABS: ALB/GLOB Ratio 0.7 RATIO (0.9-2.4); AST(SGOT) 121 U/L (15-37); Alanine Aminotransfer ALT/SGPT 203 U/L (16-61); Albumin, Serum 1.7 g/dL (3.2-5.0); Alkaline Phosphatase 529 U/L (45-117); Anion Gap 6 (5-15); BUN 45 mg/dL (7-18); BUN/Creat Ratio 37.2 RATIO (10-20); Calcium,Total 8.4 mg/dL (8.5-10.1); Chloride 108 mmol/L (98-107); Creatinine, Serum 1.21 mg/dL (0.70-1.30); EST Glomerular Filtration Rate 69 mL/min (>60); Est Glom Filt Rate - Afr Amer 83 mL/min (>60); Globulin 2.6 g/dL (2.2-4.2); Glucose 328 mg/dL (74-106); Potassium 5.5 mmol/L (3.5-5.1); Protein, Total 4.3 g/dL (6.4-8.2); Sodium Level 137 mmol/L (136-145)
[2022-06-17] MEDS: Multivitamins,Therapeutic Tablet 1 TABLET PO (10:07)
[2022-06-17] MEDS: dexAMETHasone 4 MG Tablet 8 MG PO (10:07)
[2022-06-17] MEDS: Pantoprazole Sodium 40 MG Tablet PO (10:07)
[2022-06-17] MEDS: Ferrous Sulfate 325 MG Tablet PO (10:08)
[2022-06-17] MEDS: Ciprofloxacin 500 MG Tablet PO (10:08)
[2022-06-17] MEDS: Polyethylene Glycol 3350 17 GM PACKET PO (10:08)
[2022-06-17] MEDS: Insulin Glargine-YFGN 100 UNIT/ML Pen 15 UNIT SC (10:12)
[2022-06-17] MEDS: Glucerna Shake 120 ML LIQUID PO (10:17)
[2022-06-17 11:11] LABS: Bedside Glucose 296 mg/dL (74-106)
--- NOTE | 2022-06-17 13:18 | PCM.HOSP.N ---
Hospitalist Note Day of discharge 06/17/2022 Originally set to be discharged 06/16/2022 but given late hour he was kept overnight per family preference. Examined with significant other at bedside and she reports he is similar to how he was yesterday. She would still like him to be discharged home. Discussed his clinical status and risks of discharge and she verbalized her understanding. She plans for home health and palliative care as an outpatient. She is going to call Dr. Egan's office this week and will discuss hospice referral with him but does not want that referral at this time. Patient able to wake up and does answer some questions verbally but mostly nods and shakes head. Does follow commands and he would also like to go home. Multiple adaptive equipment options at home and significant other has been trained in healthcare and is comfortable administering his medications. Additionally they will obtain protein shakes to help maintain nutrition. Discussed if there are any concerning signs or symptoms/worsening to return to the emergency department if needed. General: Laying in bed, tired but cooperative HEENT: Atraumatic, normocephalic Eyes: Scleral icterus Neck: Supple Respiratory: Clear to auscultation Cardiovascular: regular S1-S2 GI: Soft Extremities: No edema Musculoskeletal: No muscle wasting Neuro: Wakes up to voice, was following commands and answering most questions with yes/no and had movements Skin: No rash, is jaundice Psych: Attempts to be cooperative
[2022-06-17] MEDS: 0.9% Saline Lock 10 ML Syringe IV (13:28)
== END 2022-06-17 14:25 | disposition home or self-care (01) | DRG 638 ==
LOC: ED 11:41 → ICU 13:09 → PCU 06-16 04:41
PROVIDERS: Admitting Provider Internal Medicine; Emergency Provider Emergency Medicine; PCP Registered Nurse; Visit Provider Internal Medicine
DX: E11.00 Type 2 diabetes mellitus with hyperosmolarity without nonketotic hyperglycemic-hyperosmolar coma (NKHHC) (principal); G93.40 Encephalopathy, unspecified; R78.81 Bacteremia; N17.9 Acute kidney failure, unspecified; E87.20 Acidosis, unspecified; C15.9 Malignant neoplasm of esophagus, unspecified; C78.7 Secondary malignant neoplasm of liver and intrahepatic bile duct; C79.31 Secondary malignant neoplasm of brain; Z68.41 Body mass index [BMI] 40.0-44.9, adult; N39.0 Urinary tract infection, site not specified; D69.6 Thrombocytopenia, unspecified; Z79.4 Long term (current) use of insulin; K21.9 Gastro-esophageal reflux disease without esophagitis; E03.9 Hypothyroidism, unspecified; I10 Essential (primary) hypertension; K76.0 Fatty (change of) liver, not elsewhere classified; E87.5 Hyperkalemia; E86.0 Dehydration; B96.1 Klebsiella pneumoniae [K. pneumoniae] as the cause of diseases classified elsewhere; E66.9 Obesity, unspecified; Z20.822 Contact with and (suspected) exposure to COVID-19; Z79.890 Hormone replacement therapy; Z79.899 Other long term (current) drug therapy; Z87.891 Personal history of nicotine dependence; Z79.01 Long term (current) use of anticoagulants; Z79.84 Long term (current) use of oral hypoglycemic drugs; R74.8 Abnormal levels of other serum enzymes
CPT/HCPCS: 36415; 36591; 49083; 70553; 71045; 76705; 80048; 80053; 81001; 82009; 82140; 82248; 82803; 82962; 83036; 83605; 83615; 83735; 84100; 84132; 85025; 85045; 85384; 85610; 85730; 87040; 87070; 87075; 87077; 87186; 87205; 87428; 88108; 88305; 88313; 96360; 96361; 97110; 97163; 97166; 97530; 97535; 97802; 99284; 99285; A9575; J7030; J7040; A4216; J0696

== ENCOUNTER 2022-06-21 07:59 | Emergency (ER) | payer OTHER, SELFPAY ==
[2022-06-21 08:00] VITALS: BP 139/126; PULSE 105; RESP 32; TEMP 36.2; O2SAT 96; BMI 41.8
--- NOTE | 2022-06-21 08:07 | RAD_ITS ---
STUDY: X-RAY CHEST REASON FOR EXAM: Male, 47 years old. sob TECHNIQUE: Single AP portable view of the chest. COMPARISON: 06/12/2022 FINDINGS: Right internal jugular chest port which is unchanged. Alveolar opacities throughout both lungs consistent with bilateral pneumonia, pulmonary edema, or ARDS. Elevated right hemidiaphragm which is unchanged. There is moderate cardiac enlargement. Normal mediastinum and amalia. Normal visualized pulmonary arteries. Normal visualized aortic arch and descending thoracic aorta. Normal visualized thoracic spine. Normal visualized ribs, clavicles, and shoulders. There is no demonstrated abnormality of the visualized soft tissue structures of the upper abdomen. RAD/Chest 1 View (Portable) IMPRESSION: Bilateral pneumonia, pulmonary edema, or ARDS. Electronically Signed: Napoleon Jamison MD at 10:13 [facility] ,
--- NOTE | 2022-06-21 08:07 | CT_ITS ---
STUDY: CT BRAIN WITHOUT CONTRAST REASON FOR EXAM: Male, 47 years old. altered MS RADIATION DOSAGE (If Supplied By Facility): CTDIvol = ( 44.99 ) mGy, DLP = ( 812.98 ) mGycm TECHNIQUE: Transaxial CT imaging of the brain was performed without administration of intravenous contrast material. Individualized dose optimization techniques were used for this CT. COMPARISON: MRI 04/28/2022 FINDINGS: Normal soft tissue structures. Normal calvarium. Normal size ventricles and extra-axial spaces for the patient''s age. Normal white matter tracts of the cerebral hemispheres. Normal basal ganglia and thalami. Normal brainstem. 2.5 cm area of decreased attenuation of the left hemisphere of the cerebellum corresponding to the mass seen on recent MRI. There is no intracranial hemorrhage. There are no findings of an acute ischemic infarction. Normal visualized paranasal sinuses. CT/Brain/Head without Contrast IMPRESSION: Focal decreased attenuation in the left hemisphere of the cerebellum at the site of previously noted mass. No acute intracranial hemorrhage. Electronically Signed: Napoleon Jamison MD at 10:12 EST ,
--- NOTE | 2022-06-21 08:11 | EDS_ITS ---
HPI History of Present Illness Chief Complaint: Unresponsive Narrative Narrative: Patient brought by EMS after found by 7-8 AM obtunded and unresponsive. They said his blood sugar was reading high on their measuring device. He was hypoxic in the 70s-80s on his home 6 L of oxygen. Apparently this patient was discharged 5 days ago, I reviewed the discharge summary. 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 Egan concerning possible hospice although they were not making that decision prior to discharge from the hospital. At the time of evaluation, EMS has already left, and there is no family here to provide additional history. [facility] Medical History Brain tumor Cancer Former smoker GI bleed Hypertension Hypothyroidism Status post gamma knife treatment Throat cancer Home Medications ferrous sulfate 325 mg (65 mg iron) tablet 325 mg PO DAILY iron supplement 07/26/21 [History Last Taken 1 Month Ago ~05/13/22] omeprazole 20 mg capsule,delayed release 40 mg PO QHS gerd 07/26/21 [History Last Taken 06/11/22] acetaminophen 500 mg tablet 500 mg PO Q8H PRN Pain 06/12/22 [History Last Taken 1 Week Ago ~06/05/22] bumetanide 1 mg tablet 1 mg PO DAILY FLUID 06/12/22 [History Last Taken 06/12/22] docusate sodium 100 mg capsule (Colace) 100 mg PO BID PRN BOWEL 06/12/22 [History Last Taken 2 Weeks Ago ~05/29/22] enoxaparin 40 mg/0.4 mL subcutaneous syringe 40 mg subcut DAILY BLOOD CLOT 06/12/22 [History Last Taken 2 Months Ago ~04/12/22] levothyroxine 50 mcg tablet 50 mcg PO DAILY THYROID 06/12/22 [History Last Taken 06/12/22] multivitamin 1 tab PO DAILY SUPPLEMENT 06/12/22 [History Last Taken 06/11/22] pantoprazole 40 mg tablet,delayed release 40 mg PO DAILY GERD 06/12/22 [History Last Taken Unknown] trazodone 50 mg tablet 25 mg PO DAILY INSOMNIA 06/12/22 [History Last Taken 06/11/22] ciprofloxacin HCl 500 mg tablet (Cipro) 500 mg PO BID #10 tabs 06/16/22 [Rx Last Taken Unknown] dexamethasone 4 mg tablet 8 mg PO TIDCM #0 tabs 06/16/22 [Rx Last Taken Unknown] insulin glargine-yfgn 100 unit/mL (3 mL) subcutaneous pen 15 unit (0.15 mL) subcut BID 30 days #9 mL 06/16/22 [Rx Last Taken Unknown] lactulose 20 gram/30 mL oral solution 20 g (30 mL) PO TID 14 days #1,260 mL 06/16/22 [Rx Last Taken Unknown] pen needle, diabetic 30 gauge x 5/16 (Pen Needle) #100 ea 06/16/22 [Rx Last Taken Unknown] Allergy/AdvReac Type Severity Reaction Status Date / Time Penicillins Allergy Mild Hives Verified 07/26/21 12:03 lisinopril Allergy Other Verified 06/12/22 14:31 Family History (Updated 06/12/22 @ 14:[address] Dilcia Mclaughlin MD) Father No problems noted. Social History Smoking Status: Former smoker ROS ROS ED Review of Systems ROS Unobtainable: due to mental status EXAM Physical Exam Const Vital Signs: 06/21/22 08:00 06/21/22 08:10 06/21/22 08:19 Temperature 97.1 F L 98 F Temperature Source Temporal Core Pulse Rate 105 H 103 H Respiratory Rate 32 H 35 H Blood Pressure 139/126 H 169/146 H Blood Pressure Mean 130 153 Pulse Ox 96 95 Oxygen Delivery Method Non-Rebreather Non-Rebreather Non-Rebreather Oxygen Flow Rate (L/min) 15 15 06/21/22 09:01 06/21/22 09:04 06/21/22 10:00 Temperature 97.9 F 97.6 F L Temperature Source Core Core Pulse Rate 105 H 104 H 99 Respiratory Rate 22 H 32 H Blood Pressure 157/141 H 142/123 H Blood Pressure Mean 146 129 Pulse Ox 94 95 94 Oxygen Delivery Method Non-Rebreather Non-Rebreather Oxygen Flow Rate (L/min) 15 Positive well nourished, well developed and obese Constitutional Narrative: obtunded General Appearance ED: well developed Nutritional Appearance: obese HEENT Reports moist mucous membranes normocephalic and atraumatic Eyes PERRL General Eye ED: Yes scleral icterus Neck supple Neck Narrative: No meningismus Resp clear to auscultation bilaterally Cardio regular rate, regular rhythm and no murmurs Rate: tachycardic GI non-distended GI Narrative: Petechiae upper abdominal wall Auscultation: normoactive bowel sounds Palpation: soft Extremity normal to inspection General Extremety ED: Yes edema; Negative for pulses abnormal General Extremity: edema bilateral lower extremity Details: mild; Negative for pulses abnormal Neuro Neuro Narrative: Obtunded. Attempts to open eyes to physical stimulation, does not follow commands or speak. Eliana Coma Scale: document GCS findings To Pain Localizes to Pain Incomprehensible 9 Psych Psych Narrative: unable to eval Skin no wounds Skin Narrative: Petechial rash abdominal wall General Skin Exam: jaundice MDM MDM MDM Narrative Medical decision making narrative: Patient appears very lethargic/stuporous, however he is breathing adequately to keep his saturations up a lot on nonrebreather. Although his GCS is low, I do not think he needs to be emergently intubated, so we began working him up and giving him fluids while waiting for family/ to arrive who allegedly was an route. I reviewed the medication list, he is on diuretic, Lovenox, antibiotics, insulin, and dexamethasone presumably because of his brain mass. He has a history in the past of hyperosmolar hyperglycemic nonketotic coma which could be consistent with his current condition so we started with the fluids and supportive oxygen until we had more data; his blood sugar on our meter is reading 498. Labs show leukocytosis, anemia, thrombocytopenia which explains some of his petechiae, and he is significantly dehydrated/prerenal. His bilirubin is higher than it had been as are his other enzymes. Still waiting on coags, but since he is on Lovenox I will have limited evaluation to evaluate for DIC. On reevaluation after fluids, 2 L which are not yet done, he is improving, moving his extremities, pulling his mask off which resulted in him desatting to 71%, we put it back on he is not really redirectable or mentating clearly. Chandra? arrived. She states since he has been home, he has been very weak, and barely walking, needing assistance when he does. Occasional vomiting when he eats, small amounts of blood nothing major, she states that is not new, he has esophageal mass and is thrombocytopenic. Confused and getting out of bed when he is not supposed to be, minor falls. Areas where he has bumped including the right hand and right ankle have petechiae. He now has spontaneous onset of petechiae on his upper abdomen that she states is new. She had a home health nurse coming yesterday, but they called his cell phone, he is not able to converse, did not answer his phone, has not been drinking fluids, and so the home health nurse did not show up and did not call the fianc? as she was trying to direct. She is waiting for hospice to call her back but they have not called yet because of the holiday, although today is Sunday and she has not yet heard from them. I suggested inpatient hospice. She is very interested in that and making him palliative care. She agreed with IV medications and fluids to try to help correct deficits that we could help with here. I am giving him insulin as well to help get his sugar down. Very likely dehydrated as a result of hyperglycemic-mediated diuresis and in addition to not drinking and taking Bumex. Chest x-ray report reviewed, after my interpretation of it. He does appear to have bilateral infiltrates, infection versus ARDS versus pulmonary edema. This explains his dyspnea and hypoxemia without being on a nonrebreather. His CT of the head shows nothing new or acute other than the cerebellar mass that he has. Labs reviewed and interpreted by myself. He also had an ABG which is essentially normal, showing that in conjunction with a negative acetone that he is not in DKA and is likely just hyperosmolar hyperglycemic. As above this was improving. is very interested in getting hospice involved soon as possible, we called him and had him do a stat consult for inpatient hospice transfer. Lab Data Attestation: I reviewed the patient's lab results. Labs: Laboratory Results - last 24 hr 06/21/22 06/21/22 06/21/22 08:08 08:15 08:15 WBC 20.8 H RBC 2.54 L Hgb 8.4 L Hct 23.6 L MCV 92.9 MCH 33.1 H MCHC 35.6 RDW Std Deviation 85.4 H RDW Coeff of Kami 29.2 H Plt Count 49 L* Immature Gran % (Auto) 1.000 H Neut % (Auto) 96.4 H Lymph % (Auto) 0.7 L Person % (Auto) 1.7 Eos % (Auto) 0.0 Baso % (Auto) 0.2 Absolute Neuts (auto) 20.1 H Absolute Lymphs (auto) 0.15 L Nucleated RBC % 3.4 Differential Comment SCANNED Diff Path Review May foll Platelet Estimate MOD DEC Polychromasia 1+ Hypochromasia 2+ Basophilic Stippling 1+ Anisocytosis 2+ Target Cells 1+ Tear Drop Cells 1+ Ovalocytes 2+ PT INR APTT Sodium 147 H Potassium 4.7 Chloride 114 H Carbon Dioxide 26.0 Anion Gap 7 BUN 71 H Creatinine 1.67 H Estim Creat Clear Calc 53.47 Est GFR (MDRD) Af Amer 57 L Est GFR (MDRD) Non-Af 47 L BUN/Creatinine Ratio 42.5 H Glucose 530 H* Lactic Acid Calcium 8.2 L Total Bilirubin 14.80 H AST 111 H ALT 215 H Alkaline Phosphatase 548 H Total Creatine Kinase 292 Troponin I High Sens 36 Total Protein 4.2 L Albumin 1.5 L Globulin 2.7 Albumin/Globulin Ratio 0.6 L Urine Color Urine Clarity Urine pH Ur Specific [place] Urine Protein Urine Glucose (UA) Urine Ketones Urine Occult Blood Urine Nitrite Urine Bilirubin Urine Urobilinogen Ur Leukocyte Esterase Urine RBC Urine WBC Ur Squamous Epith Cells Urine Bacteria Urine Mucus Acetone Level POC Glucose 478 H* 06/21/22 06/21/22 06/21/22 08:15 08:15 08:17 WBC RBC Hgb Hct MCV MCH MCHC RDW Std Deviation RDW Coeff of Kami Plt Count Immature Gran % (Auto) Neut % (Auto) Lymph % (Auto) Person % (Auto) Eos % (Auto) Baso % (Auto) Absolute Neuts (auto) Absolute Lymphs (auto) Nucleated RBC % Differential Comment Diff Path Review Platelet Estimate Polychromasia Hypochromasia Basophilic Stippling Anisocytosis Target Cells Tear Drop Cells Ovalocytes PT 22.3 H INR 2.0 APTT 29.2 Sodium Potassium Chloride Carbon Dioxide Anion Gap BUN Creatinine Estim Creat Clear Calc Est GFR (MDRD) Af Amer Est GFR (MDRD) Non-Af BUN/Creatinine Ratio Glucose Lactic Acid 2.5 H* Calcium Total Bilirubin AST ALT Alkaline Phosphatase Total Creatine Kinase Troponin I High Sens Total Protein Albumin Globulin Albumin/Globulin Ratio Urine Color Yellow Urine Clarity Sl. Cloudy Urine pH 7.0 Ur Specific [place] 1.015 Urine Protein 30 H Urine Glucose (UA) 50 H Urine Ketones Negative Urine Occult Blood 25 H Urine Nitrite Positive H Urine Bilirubin 6 H Urine Urobilinogen 8 H Ur Leukocyte Esterase 100 H Urine RBC 0-5 SEEN Urine WBC 10-25 SEEN Ur Squamous Epith Cells 0-5 SEEN Urine Bacteria 1+ Urine Mucus 0 SEEN Acetone Level POC Glucose 06/21/22 06/21/22 08:20 10:17 WBC RBC Hgb Hct MCV MCH MCHC RDW Std Deviation RDW Coeff of Kami Plt Count Immature Gran % (Auto) Neut % (Auto) Lymph % (Auto) Person % (Auto) Eos % (Auto) Baso % (Auto) Absolute Neuts (auto) Absolute Lymphs (auto) Nucleated RBC % Differential Comment Diff Path Review Platelet Estimate Polychromasia Hypochromasia Basophilic Stippling Anisocytosis Target Cells Tear Drop Cells Ovalocytes PT INR APTT Sodium Potassium Chloride Carbon Dioxide Anion Gap BUN Creatinine Estim Creat Clear Calc Est GFR (MDRD) Af Amer Est GFR (MDRD) Non-Af BUN/Creatinine Ratio Glucose Lactic Acid Calcium Total Bilirubin AST ALT Alkaline Phosphatase Total Creatine Kinase Troponin I High Sens Total Protein Albumin Globulin Albumin/Globulin Ratio Urine Color Urine Clarity Urine pH Ur Specific [place] Urine Protein Urine Glucose (UA) Urine Ketones Urine Occult Blood Urine Nitrite Urine Bilirubin Urine Urobilinogen Ur Leukocyte Esterase Urine RBC Urine WBC Ur Squamous Epith Cells Urine Bacteria Urine Mucus Acetone Level NEGATIVE POC Glucose 490 H* ABG Data ABG results: ABG 06/21/22 08:46 Specimen Type ART Sample Site R Brach pH 7.43 Bicarbonate Actual 24.5 Total CO2 26 Base Excess 0 O2 Saturation 96 ABG pCO2 37.2 ABG pO2 78 Parker Test Positive O2 Delivery Device NRB Liter Flow 15.0 Radiography Chest X-Ray - ED: 1 View, Read by ED Physician, Right Infiltrate and Left Infiltrate Diagnostic Testing: Clinical Impression(s) from Imaging Studies Brain CT 06/21/22 08:07 IMPRESSION: Focal decreased attenuation in the left hemisphere of the cerebellum at the site of previously noted mass. No acute intracranial hemorrhage. Electronically Signed: Napoleon Jamison MD at 10:12 EST , Chest X-Ray 06/21/22 08:07 IMPRESSION: Bilateral pneumonia, pulmonary edema, or ARDS. Electronically Signed: Napoleon Jamison MD at 10:13 EST , Rhythm Strip Rhythm Strip: Sinus Tach Rate: 105 Ectopy: None EKG Initial EKG: Attestation: I personally reviewed and interpreted this EKG as follows: Interpretation: No Acute Injury Pattern and Sinus Tachycardia Prior EKG tracings: not available for review Critical Care Time Critical Care Time: Yes Critical care time (excluding procedures): 30-74 minutes (35 min), Including time spent:, Discussing w/Patient &/or Family/Belt Picker, Discussing w/Consultants, Arranging Admission or Transfer and Performing Direct Patient Care at Bedside Discharge Plan Triage Chief Complaint: Unresponsive Other Complaint: Hyperglycemia ED Provider: Carlos Toure Dx/Rx/DC Orders Clinical Impression: Acute hypoxemic respiratory failure, Hyperosmolar hyperglycemic state (HHS), Encephalopathy, Hx of esophageal malignancy, Urinary tract infection, Acute dehydration, Acute respiratory distress syndrome (ARDS) Prescriptions: No Action ferrous sulfate 325 mg (65 mg iron) Tablet 325 mg PO DAILY omeprazole 20 mg capsule,delayed release(DR/EC) 40 mg PO QHS Label Comments: TAKE 2 CAPSULES BY MOUTH EVERY DAY trazodone 50 mg tablet 25 mg PO DAILY acetaminophen 500 mg Tablet 500 mg PO Q8H PRN (Reason: Pain) levothyroxine 50 mcg tablet 50 mcg PO DAILY Label Comments: TAKE 1 TABLET BY MOUTH EVERY DAY pantoprazole 40 mg tablet,delayed release (DR/EC) 40 mg PO DAILY bumetanide 1 mg tablet 1 mg PO DAILY Label Comments: TAKE 1 TABLET BY MOUTH EVERY DAY enoxaparin 40 mg/0.4 mL Syringe 40 mg SUBCUT DAILY multivitamin Tablet 1 tab PO DAILY docusate sodium [Colace] 100 mg Capsule 100 mg PO BID PRN (Reason: BOWEL) ciprofloxacin HCl [Cipro] 500 mg tablet 500 mg PO BID Qty: 10 0RF dexamethasone 4 mg Tablet 8 mg PO TIDCM Qty: 0 0RF insulin glargine-yfgn 100 unit/mL (3 mL) Insulin Pen 15 unit subcut BID 30 Days Qty: 9 0RF (DME) pen needle, diabetic [Pen Needle] 30 gauge x 5/16 needle See Rx Instructions .Route Qty: 100 0RF Rx Instructions: As directed lactulose 20 gram/30 mL solution 20 g PO TID 14 Days Qty: 1260 0RF Primary Care Provider: Cassy Aranda NP Referrals: Cassy Aranda NP, PRINTING MACHINE [employer]ATOR [employer] [Primary Care Provider] - Disposition Disposition: Hospice in Medical Facility Discharge Location: [facility] Discharge Date/Time: 06/21/22 10:47
--- NOTE | 2022-06-21 08:14 | NURSING ---
NO OLD EKGS
[2022-06-21 08:19] VITALS: BP 169/146; PULSE 103; RESP 35; TEMP 36.6; O2SAT 95
[2022-06-21 08:21] LABS: Mucous, Urine 0 SEEN /hpf (<or=2+)
[2022-06-21 08:24] LABS: Color, Urine Yellow (Yellow); Glucose, Dipstick 50 mg/dl (Normal); Ketone-Dipstick Negative (Negative); Leukocyte Esterase-Dipstick 100 /ul (Negative); Nitrite-Dipstick Positive (Negative); Occult Blood-Urine 25 /ul (Negative); Protein-Dipstick 30 mg/dl (Negative); Specific Gravity, Urine 1.015 (1.002-1.030); Urine Clarity Sl. Cloudy (Clear); Urine Urobilinogen 8 mg/dl (Normal)
[2022-06-21 08:27] LABS: Urine Bilirubin Dipstick 6 mg/dL (Negative)
[2022-06-21] MEDS: 0.9% Normal Saline 1,000 ML 1000 ML IV ×2 (08:29→09:37)
[2022-06-21 08:30] LABS: Bedside Glucose 478 mg/dL (74-106)
[2022-06-21 08:33] LABS: Bacteria 1+ /hpf (None Seen); Red Blood Cells-Urine 0-5 SEEN /hpf (0-5); Squamous Epithelial Cells - UA 0-5 SEEN /hpf (0-5); White Blood Cells 10-25 SEEN /hpf (0-5)
[2022-06-21 08:39] LABS: Absolute Lymphocyte Count 0.15 X10^3/uL (0.83-4.51); Absolute Neutrophil Count 20.1 X10^3/uL (2.0-7.7); Basophil# 0.05 X10^3/uL; Basophil% 0.2 % (0-1); Hematocrit 23.6 % (40-54); Hemoglobin 8.4 g/dL (13.0-16.5); Lymphocyte # 0.15 X10^3/ul (0.83-4.51); Lymphocyte % 0.7 % (19-41); Mean Corp Hgb Conc 35.6 g/dL (32-36); Mean Corpuscular Hgb 33.1 pg (27.0-32.0); Mean Corpuscular Volume 92.9 fL (80-94); Monocyte# 0.36 X10^3/uL; Monocyte% 1.7 % (0-10); NRBC Flagged by Analyzer 3.4 % (0-5); Neutrophil # 20.05 X10^3/uL (2.7-7.7); Neutrophil % 96.4 % (47-70); POSITIVE COUNT YES; POSITIVE DIFFERENTIAL YES; POSITIVE MORPHOLOGY YES; RBC Distribution Width CV 29.2 % (11.6-14.6); RBC Distribution Width SD 85.4 fl (35.1-43.9); Red Blood Count 2.54 M/mm3 (4.6-6.2); White Blood Count 20.8 K/mm3 (4.4-11.0)
[2022-06-21 08:42] LABS: Differential Indicated SCAN CRITERIA MET; Platelet Count 49 K/mm3 (150-450)
[2022-06-21 08:50] LABS: Allen Test Positive; Base Excess 0 mmol/L (-2 to +2); Bicarbonate 24.5 mmol/L (22-26); Blood Gas Specimen Type ART; O2 Delivery Device NRB; PO2 78 mmHG (75-100); SITE R Brach; SO2 96 % (95-99); Total Carbon Dioxide 26 mmol/L; pCO2 37.2 mmHg (35-45); pH 7.43 (7.35-7.45)
[2022-06-21 09:01] VITALS: PULSE 105; O2SAT 94
[2022-06-21 09:02] LABS: Lactic Acid 2.5 mmol/L (0.4-1.9)
[2022-06-21 09:03] LABS: ALB/GLOB Ratio 0.6 RATIO (0.9-2.4); AST(SGOT) 111 U/L (15-37); Alanine Aminotransfer ALT/SGPT 215 U/L (16-61); Albumin, Serum 1.5 g/dL (3.2-5.0); Alkaline Phosphatase 548 U/L (45-117); Anion Gap 7 (5-15); BUN 71 mg/dL (7-18); BUN/Creat Ratio 42.5 RATIO (10-20); CPK Total, Creatine Kinase 292 U/L (39-308); Calcium,Total 8.2 mg/dL (8.5-10.1); Chloride 114 mmol/L (98-107); Creatinine, Serum 1.67 mg/dL (0.70-1.30); EST Glomerular Filtration Rate 47 mL/min (>60); Est Glom Filt Rate - Afr Amer 57 mL/min (>60); Estimated Creatinine Clearance 53.47 ml/min; Globulin 2.7 g/dL (2.2-4.2); Glucose 530 mg/dL (74-106); Potassium 4.7 mmol/L (3.5-5.1); Protein, Total 4.2 g/dL (6.4-8.2); Sodium Level 147 mmol/L (136-145); Troponin-I HS 36 pg/mL (3.0-78.0)
[2022-06-21 09:04] VITALS: BP 157/141; PULSE 104; RESP 22; TEMP 36.6; O2SAT 95
[2022-06-21 09:18] LABS: Differential Comment SCANNED
[2022-06-21 09:19] LABS: Platelet Estimate MOD DEC (ADEQ)
[2022-06-21 09:20] LABS: Anisocytosis 2+; Basophilic Stippling 1+; Hypochromasia 2+; Ovalocyte 2+; Polychromasia 1+; Target Cells 1+; Tear Drop Cell 1+
--- NOTE | 2022-06-21 09:29 | NURSING ---
CALLING HOSPICE FOR DR LOZANO
[2022-06-21 09:33] LABS: Prothrombin Time (Protime)PT. 22.3 SECONDS (11.7-14.9)
[2022-06-21 09:34] LABS: Partial Thromboplast Time 29.2 Seconds (24.1-36.2)
--- NOTE | 2022-06-21 09:40 | NURSING ---
TO FAX CHART TO HOSPICE
[2022-06-21] MEDS: Insulin Lispro 100 UNIT/ML INSULN.PEN 16 UNIT SC (09:42)
[2022-06-21 10:00] VITALS: BP 142/123; PULSE 99; RESP 32; TEMP 36.4; O2SAT 94
[2022-06-21 10:45] LABS: Bedside Glucose 490 mg/dL (74-106)
--- NOTE | 2022-06-21 10:54 | CM.ED ---
SW Note Referral Source: Case Find Referral Reason: Support SW met with patient's kathia'. She said that they went home last week and had home health from an agency and no one from that agency showed up yesterday. Kathia said that patient was not doing well today so she brought him to the ED. Kathia said that a hospice referral has been made. Emotional support provided. SW remains available if needs arise. Dana FRENCH
[2022-06-21 12:26] LABS: Pathologist Review Reviewed
[2022-06-21 12:29] LABS: Reflex Lactate? Y
== END 2022-06-21 10:47 | disposition hospice, inpatient (51) ==
PROVIDERS: Emergency Provider Emergency Medicine; PCP Registered Nurse; Visit Provider Emergency Medicine
DX: J96.01 Acute respiratory failure with hypoxia (principal); C79.31 Secondary malignant neoplasm of brain; C15.9 Malignant neoplasm of esophagus, unspecified; E87.0 Hyperosmolality and hypernatremia; G93.40 Encephalopathy, unspecified; N39.0 Urinary tract infection, site not specified; E86.0 Dehydration; E66.9 Obesity, unspecified; Z87.891 Personal history of nicotine dependence
CPT/HCPCS: 36600; 51702; 70450; 71045; 80053; 81001; 82009; 82550; 82803; 82962; 83605; 84484; 85025; 85610; 85730; 87040; 87077; 87086; 87186; 87428; 93005; 96360; 96361; 99285; J7030; A4216